=== PATIENT | male | born 1955 | race Caucasian/White ===

== ENCOUNTER 2022-08-23 01:40 | Emergency (ER) | payer OTHER, MEDICARE ==
[2022-08-23 01:48] VITALS: BP 156/95; PULSE 77; RESP 22; TEMP 97.6
[2022-08-23] MEDS ORDERED: MORPHINE SULFATE 4 MG/ML SYRINGE IM STA (02:59)
--- NOTE | 2022-08-23 03:36 | ED ---
Trauma HPI - General Chief Complaint: Extremity Injury, Lower Stated Complaint: Fall, [facility] Time Seen by Provider: 08/23/22 02:21 Source: patient, RN notes reviewed Mode of arrival: ambulatory Limitations: no limitations - History of Present Illness Initial Comments: This is a pleasant 66-year-old male who fell at work. Patient states she tripped over a piece of metal on a screen and fell onto his knees, left shoulder, and face. Patient denies losing consciousness but is complaining of severe pain to his left orbital area and his neck. Patient states the pain in the bilateral knee areas rather mild. Patient denies any change in vision. No nausea or vomiting. Patient not on blood thinners. No hearing disturbance. No slurred speech. No oral or dental injury. Patient had no other preceding symptomology. This was a mechanical fall. PATIENT states he does have a headache. no fever or chills, no changes in vision or hearing, no sore throat or difficulty with speech, no chest pain or shortness of breath, no abdominal pain, no nausea or vomiting, no changes in urination or bowel movements, no numbness or tingling,no skin rashes or lesions. Past medical, surgical, social, and family history reviewed. Complaint: fall - Related Data Home Medications Medication Instructions Recorded Confirmed Albuterol Sulfate [Albuterol 2 puff PO RT-Q6H PRN 01/11/22 01/11/22 Sulfate Hfa] Aspirin [Adult Low Dose Aspirin EC] 81 mg PO DAILY 01/11/22 01/11/22 Tiotropium 2.5 Mcg/Puff [Spiriva 2 puff INHALATION RT-DAILY 01/11/22 01/11/22 Respimat 2.5 Mcg] Previous Rx's Medication Instructions Recorded Atorvastatin [Lipitor] 20 mg PO HS 30 Days #30 tab 01/13/22 Clopidogrel [Plavix] 75 mg PO DAILY 30 Days #30 tab 01/13/22 Allergies Allergy/AdvReac Type Severity Reaction Status Date / Time Iodinated Contrast Media Allergy Anaphylaxis Verified 08/23/22 01:48 Review of Systems ROS Statement: Those systems with pertinent positive or pertinent negative responses have been documented in the HPI. ROS Other: All systems not noted in ROS Statement are negative. Past Medical History Past Medical History: CVA/TIA Last Myocardial Infarction Date:: 2006 History of Any Multi-Drug Resistant Organisms: None Reported Past Surgical History: Cholecystectomy, Heart Catheterization, Orthopedic Surgery Additional Past Surgical History / Comment(s): with cardiac stent; discectomy; ankle sx; right eye cataract surgery Past Anesthesia/Blood Transfusion Reactions: No Reported Reaction Past Psychological History: No Psychological Hx Reported Smoking Status: Former smoker Past Alcohol Use History: None Reported Past Drug Use History: None Reported - Past Family History Father Family Medical History: Cancer Additional Family Medical History / Comment(s): liver cancer Mother Additional Family Medical History / Comment(s): SLE; General Exam - General Exam Comments Initial Comments: Cranial nerves II through XII appear to be intact. Patient is alert and oriented 4. the patient has chronic amblyopia affecting the left eye. No evidence of entrapment. Extraocular movements are intact. Patient has obvious bruising and injury to his left forehead and left periorbital area. Limitations: no limitations General appearance: alert, in no apparent distress, in distress Head exam: Present: other (Patient has bruising and tenderness to the left periorbital area. Left zygoma. The lesser extent the bridge of his nose. Patient able to open and close his jaw. There is no mandibular tenderness. Mild abrasion to the forehead. No step-off. Major of the head is normocephalic/atraumatic.) Eye exam: Present: normal appearance, PERRL, EOMI, other (Chronic left amblyopia per patient report). Absent: scleral icterus, conjunctival injection, periorbital swelling ENT exam: Present: normal exam, normal oropharynx, mucous membranes moist, TM's normal bilaterally, normal external ear exam, other (Mild tenderness over the bridge of the nose. No evidence of septal hematoma.). Absent: mucous membranes dry Neck exam: Present: normal inspection, tenderness (Patient does have tenderness to the posterior neck to include the midline. Cervical collar applied. Range of motion testing deferred initially). Absent: meningismus, lymphadenopathy Respiratory exam: Present: normal lung sounds bilaterally. Absent: respiratory distress, wheezes, rales, rhonchi, stridor, chest wall tenderness, accessory muscle use, decreased breath sounds, prolonged expiratory Cardiovascular Exam: Present: regular rate, normal rhythm, normal heart sounds. Absent: systolic murmur, diastolic murmur, rubs, gallop, clicks GI/Abdominal exam: Present: soft, normal bowel sounds. Absent: distended, tenderness, guarding, rebound, rigid Extremities exam: Present: normal inspection, full ROM, tenderness (Mild tenderness bilateral anterior knees), normal capillary refill. Absent: pedal edema, joint swelling, calf tenderness Back exam: Present: normal inspection, full ROM. Absent: tenderness, paraspinal tenderness, vertebral tenderness Neurological exam: Present: alert, oriented X3, CN II-XII intact, normal gait (Gait essentially normal) Psychiatric exam: Present: normal affect, normal mood Skin exam: Present: warm, dry, intact, normal color. Absent: rash Course Vital Signs 08/23/22 01:40 Temperature 97.6 F Pulse Rate 77 Respiratory 22 Rate Blood Pressure 156/95 O2 Sat by Pulse 96 Oximetry Medical Decision Making - Medical Decision Making Patient's imaging showed no evidence of facial fracture, no evidence of intracranial injury. No evidence of cervical injury. Cervical spine was cleared. Patient was neurologically intact. Patient is rechecked at discharge and was improved. Plain film x-rays of bilateral knees and left shoulder read by me showing degenerative changes but no evidence of acute fracture or dislocation. Patient will need to follow up with the [facility]. Patient was told to return to the ER for any signs or symptoms worsen. Told to return immediately if any other problems arise. All questions answered. Treatment plan discussed. Patient in agreement Every effort has been made to ensure accuracy of this dictation. However, due to the limitations of electronic medical records and dictation devices, errors in charting still occur. Supervising physician is Dr. Bhat - Radiology Data Radiology results: report reviewed, image reviewed Disposition Clinical Impression: Facial contusion, Closed head injury, Contusion, knee, Contracture, left shoulder Disposition: HOME SELF-CARE Condition: Good Instructions (If sedation given, give patient instructions): Knee Pain (ED), Facial Contusion (ED), Head Injury (ED) Additional Instructions: Follow-up with your regular physician as directed. Return to the ER immediately if any symptoms worsen, new symptoms arise, or any other problems develop. Apply ice to the affected areas 20 minutes on and off for times daily. Follow- up with [facility] as discussed. Call your human resources manager manufacturing to have the appointment scheduled. Off work until follow-up. Return to the ER immediately if any symptoms worsen, new symptoms arise, or any other problems develop. Is patient prescribed a controlled substance at d/c from ED?: No Referrals: Nonstaff,Physician [Primary Care Provider] - 1-2 days Time of Disposition: 04:21
--- NOTE | 2022-08-23 03:41 | CT ---
EXAMINATION TYPE: CT brain cspine wo con DATE OF EXAM: 08/23/2022 COMPARISON: CT brain 01/11/2022 HISTORY: Fall CT DLP: 1229.6 mGycm Automated exposure control for dose reduction was used. Images of the brain and cervical spine obtained with no contrast. Ventricles and sulci appear normal. There is no mass effect or midline shift. No sign of intracranial hemorrhage. The calvarium is intact. There is normal aeration of the mastoid sinuses. No evidence of cerebral edema. The cervical vertebra have normal alignment. There is C6-7 anterior fusion surgery. Posterior element s are intact. There is mild cervical facet arthropathy. No subluxation. There is minor spurring of th e endplates. IMPRESSION: Minor degenerative changes in the cervical spine. No fracture. Negative CT scan of the brain. Brain is not changed compared to old exam. There is clearing of the le ft side frontal sinusitis compared to the old exam.
--- NOTE | 2022-08-23 03:46 | CT ---
EXAMINATION TYPE: CT facial bones wo con DATE OF EXAM: 08/23/2022 COMPARISON: None HISTORY: Fall CT DLP: 1229.6 mGycm Automated exposure control for dose reduction was used. CT scan of the facial bones. History fall. Pain. Comparison none. FINDINGS: Images obtained from the bottom of the mandible to the top of the frontal sinuses with no contrast. There is significant left-sided preseptal periorbital swelling. This is consistent with hematoma and measures up to 1.5 cm in thickness. The nasal bone is intact. There is also hematoma anterior to the left zygoma. This measures 2 cm. No evidence of orbital fracture. No evidence of orbital blowout frac ture. No retro-orbital mass. The zygomatic arches appear normal. The maxilla is intact. The mandibula r ring is intact. Temporomandibular joints are intact. There is normal aeration of the mastoid sinuse s. There is some mucosal thickening in the ethmoid air cells. IMPRESSION: Left-sided periorbital hematoma and zygomatic hematoma. No evidence of blowout fracture. No fracture seen. Ethmoid sinus mucosal thickening likely related to sinusitis. No nasal bone fracture.
--- NOTE | 2022-08-23 04:17 | XR ---
EXAMINATION TYPE: XR shoulder complete LT DATE OF EXAM: 08/23/2022 COMPARISON: NONE HISTORY: Pain TECHNIQUE: 3 views FINDINGS: I see no fracture nor dislocation. Joint spaces are normal. AC joint is intact. IMPRESSION: Negative left shoulder exam. Minor spurring at the AC joint
--- NOTE | 2022-08-23 04:18 | XR ---
EXAMINATION TYPE: XR knee complete bilateral DATE OF EXAM: 08/23/2022 COMPARISON: NONE HISTORY: Pain TECHNIQUE: 3 views each knee FINDINGS: There is no evidence of fracture nor dislocation. Joint spaces are normal. No sign of knee joint effusion. No focal bone destruction. The patella appear intact. IMPRESSION: Negative bilateral knee exam. No fracture seen.
[2022-08-23] MEDS ORDERED: ACET/COD 300 MG/30 MG STARTER PACK 6 TAB BTL PO STA (04:26)
== END 2022-08-23 05:03 | disposition home or self-care (01) ==
LOC: EC 01:40
DX: S00.83XA Contusion of other part of head, initial encounter (principal); S80.02XA Contusion of left knee, initial encounter; S80.01XA Contusion of right knee, initial encounter; M24.512 Contracture, left shoulder; I25.2 Old myocardial infarction; Z86.73 Personal history of transient ischemic attack (TIA), and cerebral infarction without residual deficits; Z87.891 Personal history of nicotine dependence; Z91.041 Radiographic dye allergy status; Z79.82 Long term (current) use of aspirin; W18.09XA Striking against other object with subsequent fall, initial encounter
CPT/HCPCS: 73562; 73030; 72125; 70486; 70450; 99284; 96372; J2270

== ENCOUNTER 2023-07-09 08:08 | Emergency (ER) | payer OTHER, MEDICARE ==
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
[2023-07-09 08:24] LABS: Glucose,Whole Blood 111 mg/dL (70-110)
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
[2023-07-09 08:40] VITALS: RESP 18
[2023-07-09 08:46] LABS: Basophils % (A) 1 %; Eosinophils # (A) 0.2 k/uL (0-0.7); Eosinophils % (A) 2 %; HCT 50.6 % (39.0-53.0); HGB 16.8 gm/dL (13.0-17.5); Lymphocytes # (A) 1.3 k/uL (1.0-4.8); Lymphocytes % (A) 14 %; MCH 28.6 pg (25.0-35.0); MCHC 33.2 g/dL (31.0-37.0); MCV 86.2 fL (80.0-100.0); Mean Platelet Volume 8.6; Monocytes # (A) 0.4 k/uL (0-1.0); Monocytes % (A) 5 %; Neutrophils # (A) 6.7 k/uL (1.3-7.7); Neutrophils % (A) 77 %; Platelet Count 168 k/uL (150-450); RBC 5.87 m/uL (4.30-5.90); RDW 14.3 % (11.5-15.5); WBC 8.6 k/uL (3.8-10.6)
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
[2023-07-09 08:50] LABS: INR 0.9 (<1.2); Partial Thromboplastin Time 24.1 sec (22.0-30.0); Prothrombin Time 9.9 sec (9.0-12.0)
[2023-07-09 08:54] LABS: ALT 23 U/L (4-49); AST 37 U/L (17-59); African American GFR (CKD) >90 (>60 ml/min/1.73 sqM); Albumin 4.2 g/dL (3.5-5.0); Alcohol <10 mg/dL; Alkaline Phosphatase 43 U/L (38-126); Anion Gap 8 mmol/L; Blood Urea Nitrogen 15 mg/dL (9-20); Calcium 8.5 mg/dL (8.4-10.2); Carbon Dioxide 26 mmol/L (22-30); Chloride 106 mmol/L (98-107); Glucose 119 mg/dL (74-99); Non-African American GFR(CKD) 80 (>60 ml/min/1.73 sqM); Sodium 140 mmol/L (137-145); Total Bilirubin 0.7 mg/dL (0.2-1.3); Total Protein 7.2 g/dL (6.3-8.2)
[2023-07-09 08:59] LABS: Potassium 4.8 mmol/L (3.5-5.1)
--- NOTE | 2023-07-09 09:37 | XR ---
EXAMINATION TYPE: XR elbow complete LT DATE OF EXAM: 07/09/2023 CLINICAL HISTORY: pain TECHNIQUE: Frontal, lateral and oblique images of the left elbow are obtained. COMPARISON: None. FINDINGS: There is no acute fracture/dislocation evident of the elbow. No abnormal fat pad signs ar e seen. The overlying soft tissue appears unremarkable. IMPRESSION: There is no acute fracture or dislocation of the elbow. ICD 10 NO FRACTURE, INITIAL EVALUATION
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
--- NOTE | 2023-07-09 09:38 | XR ---
EXAMINATION TYPE: XR Hip Complete LT DATE OF EXAM: 07/09/2023 CLINICAL HISTORY: pain TECHNIQUE: AP and frogleg views of the left hip are obtained. COMPARISON: None. FINDINGS: There is no acute fracture/dislocation evident. The joint space appears within normal li mits. The overlying soft tissue appears unremarkable. IMPRESSION: 1. There is no acute fracture or dislocation.ICD 10 NO FRACTURE, INITIAL EVALUATION
[2023-07-09] MEDS ORDERED: LIDOCAINE 1% INJ 10MG/ML (20 ML MDV) SQ ONE (10:13)
[2023-07-09] MEDS ORDERED: BACITRACIN OINT 1 EACH PACKET TOPICAL ONE ×2 (10:13→11:20)
[2023-07-09 11:59] VITALS: BP 137/72; PULSE 71; TEMP 97
[2023-07-09 12:21] LABS: Amphetamine Screen,Urine Not Detected (NotDetected); Barbiturate Screen,Urine Not Detected (NotDetected); Benzodiazepines Screen,Urine Not Detected (NotDetected); Cocaine Screen,Urine Not Detected (NotDetected); Methadone Screen, Urine Not Detected (NotDetected); Opiate Screen,Urine Detected (NotDetected); Oxycodone Screen, Urine Not Detected (NotDetected); Phencyclidine Screen,Urine Not Detected (NotDetected); Tricyclic Antidepressant,Urine Not Detected (NotDetected); Urn Cannabinoid Scrn Not Detected (NotDetected)
== END 2023-07-09 11:55 | disposition home or self-care (01) ==
LOC: EC 08:08
DX: S51.012A Laceration without foreign body of left elbow, initial encounter (principal); S50.812A Abrasion of left forearm, initial encounter; Z87.891 Personal history of nicotine dependence; Z79.82 Long term (current) use of aspirin; Z91.041 Radiographic dye allergy status; V29.99XA Rider (driver) (passenger) of other motorcycle injured in unspecified traffic accident, initial encounter; Y92.410 Unspecified street and highway as the place of occurrence of the external cause
CPT/HCPCS: 36415; 93005; 86900; 86901; 80053; 84484; 85025; 85610; 85730; 86850; 80306; 80320; 72170; 73502; 73080; 73562; 71045; 72125; 70450; 99285; 96365; 12002; J0690; J2001

== ENCOUNTER → 2024-09-17 | Outpatient (CLI) | payer OTHER ==
[2024-09-17 12:34] VITALS: BP 155/91; PULSE 68; RESP 16; TEMP 97.5
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
== END ==
LOC: PNWHC3 12:14
PROVIDERS: ATTEND Specialist
DX: M54.16 Radiculopathy, lumbar region
CPT/HCPCS: 99211

== ENCOUNTER → 2024-09-22 | Outpatient (CLI) | payer OTHER ==
--- NOTE | 2024-09-22 20:06 | CT ---
EXAMINATION TYPE: CT lumbar spine wo con CT DLP: 1492.4 mGycm, Automated exposure control for dose reduction was used. DATE OF EXAM: 09/22/2024 6:37 AM COMPARISON: Lumbar spine radiograph 07/23/2024. CLINICAL INDICATION:Male, 68 years old with history of INTERVERTEBRAL DISC DISORDERS W RADICULOPATHY, LUMBAR REGION; PHH, Low back pain, no known injury TECHNIQUE: Multiple axial images were obtained from the midportion of T11 through the sacroiliac jamia nts. Soft tissue and bone windows in coronal and sagittal planes were obtained and reviewed. Contrast used: none. Oral contrast used: none. FINDINGS: Alignment: There are 5 lumbar type vertebral bodies within normal alignment. Bone: No evidence of fracture is identified. Discs: T12-L1: No spinal canal or neural foraminal stenosis is identified. L1-L2: No spinal canal or neural foraminal stenosis is identified. L2-L3: No spinal canal or neural foraminal stenosis is identified. L3-L4: No spinal canal or neural foraminal stenosis is identified. L4-L5: Broad-based disc bulge with minimal effacement of the anterior thecal sac. Bilateral facet art hropathy with mild bilateral neural foraminal narrowing. L5-S1: No spinal canal or neural foraminal stenosis is identified. Other: Medial lower pole of the left kidney 1.4 cm cyst. Atherosclerotic calcification of the aorta i s branches. No abdominal aortic aneurysm. IMPRESSION: 1. No evidence for spinal fracture. 2. Mild degenerative disc disease and facet arthropathy at L4-L5 with a minimal spinal canal narrowin g and mild bilateral neural foraminal narrowing. [facility], , 09/22/2024 8:04 PM
== END | disposition home or self-care (01) ==
LOC: RADCTMAIN 05:48
PROVIDERS: ATTEND Specialist
CPT/HCPCS: 72131

== ENCOUNTER 2024-10-08 09:58 | Inpatient (IN) | payer OTHER ==
--- NOTE | 2024-10-08 10:16 | ED ---
Chest Pain HPI - General Source: patient, RN notes reviewed <Sharona Guzmán - Last Filed: 10/08/24 10:15> - General Source: patient, RN notes reviewed Mode of arrival: ambulatory Limitations: no limitations <Alphonso Willett - Last Filed: 10/08/24 13:21> - General Stated Complaint: chest pain Time Seen by Provider: 10/08/24 10:15 - History of Present Illness Initial Comments: Quick [id number] male presenting to the emergency department chief complaint of consistent chest pressure that is mid chest that started approximately 30 minutes prior to arrival. Endorses shortness of breath with pain. Patient has a lung nodule is being monitored by his primary care provider . History of previous stent placement (Sharona Guzmán) 68-year-old male presents emergency department chief complaint of chest pain. Patient states it is mid chest pain, pressure feeling that started just prior to arrival. States pain does radiate to his chest, back region. Patient states he has some shortness of breath he states that a prior stents placement in 2006 wh en he had an NSTEMI. Patient states he also had 2 prior strokes he is on Plavix, aspirin but did not take his aspirin today. Patient denies any cough colic symptoms no leg pain leg swelling no history of DVT or PE. (Alphonso Willett) - Related Data Home Medications Medication Instructions Recorded Confirmed Albuterol Sulfate [Albuterol 2 puff PO RT-Q6H PRN 01/11/22 09/17/24 Sulfate Hfa] Aspirin [Adult Low Dose Aspirin EC] 81 mg PO DAILY 01/11/22 09/17/24 Tiotropium 2.5 Mcg/Puff [Spiriva 2 puff INHALATION RT-DAILY 01/11/22 09/17/24 Respimat 2.5 Mcg] Previous Rx's Medication Instructions Recorded Atorvastatin [Lipitor] 20 mg PO HS 30 Days #30 tab 01/13/22 Clopidogrel [Plavix] 75 mg PO DAILY 30 Days #30 tab 01/13/22 Acetaminophen Tab [Tylenol Tab] 500 mg PO Q6H PRN #24 tablet 08/23/22 Naproxen [Naprosyn] 375 mg PO Q12HR PRN #20 tablet 08/23/22 Allergies Allergy/AdvReac Type Severity Reaction Status Date / Time Iodinated Contrast Media Allergy Anaphylaxis Verified 10/08/24 10:18 Review of Systems ROS Other: All systems not noted in ROS Statement are negative. <Sharona Guzmán - Last Filed: 10/08/24 10:15> ROS Other: All systems not noted in ROS Statement are negative. <Alphonso Willett - Last Filed: 10/08/24 13:21> ROS Statement: Those systems with pertinent positive or pertinent negative responses have been documented in the HPI. EKG Findings - EKG Comments: EKG Findings:: EKG performed at 10: 32 sinus rhythm with a rate of 74 ID 156 QRS 109 QT/QTc 309/426 Q wave in lead III noted. - EKG Results: EKG: interpreted by ERMD <Alphonso Willett - Last Filed: 10/08/24 13:21> Past Medical History Past Medical History: CVA/TIA Last Myocardial Infarction Date:: 2006 History of Any Multi-Drug Resistant Organisms: None Reported Past Surgical History: Cholecystectomy, Heart Catheterization, Orthopedic Surgery Additional Past Surgical History / Comment(s): with cardiac stent; discectomy; ankle sx; right eye cataract surgery Past Anesthesia/Blood Transfusion Reactions: No Reported Reaction Smoking Status: Former smoker - Past Family History Father Family Medical History: Cancer Additional Family Medical History / Comment(s): liver cancer Mother Additional Family Medical History / Comment(s): SLE; <Sharona Guzmán - Last Filed: 10/08/24 10:15> General Exam <Sharona Guzmán - Last Filed: 10/08/24 10:15> General appearance: alert, in no apparent distress Head exam: Present: atraumatic, normocephalic, normal inspection Neck exam: Present: normal inspection. Absent: tenderness, meningismus, lymphadenopathy Respiratory exam: Present: normal lung sounds bilaterally. Absent: respiratory distress, wheezes, rales, rhonchi, stridor Cardiovascular Exam: Present: regular rate, normal rhythm, normal heart sounds. Absent: systolic murmur, diastolic murmur, rubs, gallop, clicks GI/Abdominal exam: Present: soft, normal bowel sounds. Absent: distended, tenderness, guarding, rebound, rigid Extremities exam: Absent: pedal edema <Alphonso Willtet - Last Filed: 10/08/24 13:21> - General Exam Comments Initial Comments: Visual Physical Exam Vital signs reviewed General: Well-appearing, nontoxic, no acute distress. Head: Normocephalic, atraumatic Eyes: PERRLA, EOMI ENT: Airway patent Chest: Nonlabored breathing Skin: No visual rash, normal skin tone Neuro: Alert and oriented 3 Musculoskeletal: No gross abnormalities (Sharona Guzmán) Course Vital Signs 10/08/24 10:16 Temperature 97.5 F L Pulse Rate 77 Respiratory 20 Rate Blood Pressure 136/82 O2 Sat by Pulse 95 Oximetry Chest Pain MDM <Sharona Guzmán - Last Filed: 10/08/24 10:15> <Alphonso Willett - Last Filed: 10/08/24 13:21> - MDM I completed the quick note portion of this chart signed Sharona Guzmán PA-C (Sharona Guzmán) Was pt. sent in by a medical professional or institution (CHAPARRO Gregorio, PRINTING ESTIMATOR, urgent care, hospital, or jail...) When possible be specific @ -No Did you speak to anyone other than the patient for history (EMS, parent, family, police, friend...)? What history was obtained from this source @ -No Did you review nursing and triage notes (agree or disagree)? Why? @ -I reviewed and agree with nursing and triage notes Were old charts reviewed (outside hosp., previous admission, EMS record, old EKG, old radiological studies, urgent care reports/EKG's, jail records)? Report findings @ -No old charts were reviewed Differential Diagnosis (chest pain, altered mental status, abdominal pain women, abdominal pain men, vaginal bleeding, weakness, fever, dyspnea, syncope, headache, dizziness, GI bleed, back pain, seizure, CVA, palpatations, mental health, musculoskeletal)? @ -Differential Chest Pain: Stable Angina, Unstable Angina, STEMI, NSTEMI Aortic Dissection, Pneumothorax, Musculoskeletal, Esophageal Spasm GERD, Cholecystitis, Pancreatitis, Zoster, this is not meant to be an all-inclusive list. EKG interpreted by me (3pts min.). @ -As above X-rays interpreted by me (1pt min.). @ -None done CT interpreted by me (1pt min.). @ -None done U/S interpreted by me (1pt. min.). @ -None done What testing was considered but not performed or refused? (CT, X-rays, U/S, labs)? Why? @ -None What meds were considered but not given or refused? Why? @ -None Did you discuss the management of the patient with other professionals (professionals i.e. , PA, PRINTING ESTIMATOR, lab, RT, psych nurse, social work associate, sugar sampler, teacher, vice squad police officer, manager rn case)? Give summary @ -Juan Carey with [facility] for admission Was smoking cessation discussed for >3mins.? @ -No Was critical care preformed (if so, how long)? @ -No Were there social determinants of health that impacted care today? How? (Homelessness, low income, unemployed, alcoholism, drug addiction, transportation, low edu. Level, literacy, decrease access to med. care, intermediate, rehab)? @ -No Was there de-escalation of care discussed even if they declined (Discuss DNR or withdrawal of care, Hospice)? DNR status @ -No What co-morbidities impacted this encounter? (DM, HTN, Smoking, COPD, CAD, Cancer, CVA, ARF, Chemo, Hep., AIDS, mental health diagnosis, sleep apnea, morbid obesity)? @ -[CAD Was patient admitted / discharged? Hospital course, mention meds given and route, prescriptions, significant lab abnormalities, going to OR and other pertinent info. @ -Admitted patient presented for chest pain substernal chest pain. Patient continues to have pain with no EKG changes. Nitropaste was applied. Patient will be admitted for cardiac rule out. Undiagnosed new problem with uncertain prognosis? @ -No Drug Therapy requiring intensive monitoring for toxicity (Heparin, Nitro, Insulin, Cardizem)? @ -No Were any procedures done? @ -No Diagnosis/symptom? @ -Chest pain Acute, or Chronic, or Acute on Chronic? @ -Acute Uncomplicated (without systemic symptoms) or Complicated (systemic symptoms)? @ -complicated Side effects of treatment? @ -No Exacerbation, Progression, or Severe Exacerbation? @ -No Poses a threat to life or bodily function? How? (Chest pain, [place], [place], pneumonia, PE, COPD, DKA, ARF, appy, cholecystitis, CVA, Diverticulitis, Homicidal, Suicidal, threat to staff... and all critical care pts) @ yes possible ACS causing cardiac arrest (Alphonso Willett) Disposition <Sharona Guzmán - Last Filed: 10/08/24 10:15> Time of Disposition: 13:10 <Alphonso Willett - Last Filed: 10/08/24 13:21> Clinical Impression: Chest pain Disposition: ADMITTED IP TO THIS HOSP Referrals: Nonstaff,Physician [Primary Care Provider] - 1-2 days
[2024-10-08 10:55] LABS: Basophils % (A) 0 %; Eosinophils # (A) 0.2 k/uL (0-0.7); Eosinophils % (A) 3 %; HCT 51.1 % (39.0-53.0); HGB 16.8 gm/dL (13.0-17.5); Lymphocytes # (A) 1.7 k/uL (1.0-4.8); Lymphocytes % (A) 23 %; MCHC 32.8 g/dL (31.0-37.0); MCV 85.2 fL (80.0-100.0); Mean Platelet Volume 8.2; Monocytes # (A) 0.6 k/uL (0-1.0); Monocytes % (A) 8 %; Neutrophils # (A) 4.6 k/uL (1.3-7.7); Neutrophils % (A) 64 %; Platelet Count 178 k/uL (150-450); RDW 14.8 % (11.5-15.5); WBC 7.3 k/uL (3.8-10.6)
[2024-10-08 11:07] LABS: ALT 21 U/L (4-49); AST 28 U/L (17-59); African American GFR (CKD) 85 (>60 ml/min/1.73 sqM); Albumin 4.6 g/dL (3.5-5.0); Alkaline Phosphatase 64 U/L (38-126); Anion Gap 6 mmol/L; Blood Urea Nitrogen 17 mg/dL (9-20); Calcium 9.4 mg/dL (8.4-10.2); Carbon Dioxide 26 mmol/L (22-30); Chloride 106 mmol/L (98-107); Glucose 87 mg/dL (74-99); Lipase 78 U/L (23-300); Non-African American GFR(CKD) 73 (>60 ml/min/1.73 sqM); Sodium 138 mmol/L (137-145); Total Bilirubin 0.9 mg/dL (0.2-1.3); Total Protein 7.2 g/dL (6.3-8.2)
[2024-10-08 11:11] LABS: INR 0.9 (<1.2); Partial Thromboplastin Time 26.4 sec (22.0-30.0); Prothrombin Time 10.4 sec (10.0-12.5)
[2024-10-08 11:16] LABS: NT-Pro-B-Type Natriuretic Pept 44 pg/mL
[2024-10-08] MEDS: ASPIRIN 81 MG PO STA (11:58)
--- NOTE | 2024-10-08 12:12 | XR ---
EXAMINATION TYPE: XR chest 2V DATE OF EXAM: 10/08/2024 11:50 AM COMPARISON: 07/09/2023 CLINICAL INDICATION: Male, 68 years old with history of Chest Pain, TECHNIQUE: XR chest 2V view(s) obtained. FINDINGS: The heart size is normal. The pulmonary vasculature is normal. The lungs are clear. IMPRESSION: 1. No acute pulmonary process. [facility], , 10/08/2024 12:10 PM
[2024-10-08] MEDS: NITROGLYCERIN OINT 1 INCH/GM PACKET TOPICAL STA (13:47)
[2024-10-08] MEDS: MORPHINE SULFATE 4 MG/ML SYRINGE IVP STA ×2 (13:47→15:38)
[2024-10-08] MEDS ORDERED: ALBUTEROL NEBULIZED 2.5 MG/3 ML INHALATION PRN (13:49)
--- NOTE | 2024-10-08 15:06 | P.HPIM ---
History of Present Illness H&P Date: 10/08/24 History of Presenting Illness: Patient is a pleasant 68-year-old male with a past medical history of CAD status post stenting, hypertension, hyperlipidemia, COPD not home oxygen dependent, lung nodule, and 2 previous CVAs. He presented to the emergency department with a chief complaint of chest pain. Patient reports pain started this morning while at rest and describes pain as a persistent pressure to midsternal chest radiating into his back accompanied by shortness of breath. Patient states this chest pressure is persistent "heaviness". He denies having any dizziness, lightheadedness, diaphoresis, changes in vision or hearing, palpitations, cough or congestion, nausea, vomiting, or experiencing any numbness/tingling/weakness/swelling in his extremities. Patient reports he follows with health care / medical job titles at [facility] but has not seen in over a year. Patient reports this pressure is intense and he seems worse than his chest pain/pressure he experienced from his previous [place] in 2006. Upon arrival to our facility, patient underwent evaluation in the emergency department. Vital signs upon arrival show blood pressure 136/82, heart rate 77, respiratory rate 20, temp 97.5 F, and SpO2 of 95% on room air. EKG completed showing normal sinus r hythm at 74 bpm with T wave inversion in inferior lead III otherwise no significant T wave or ST abnormalities upon personal review and interpretation. Chest x-ray completed negative for acute cardiopulmonary process. Labs completed and reviewed. CBC unremarkable. Coagulation profile normal findings. BMP unremarkable. Blood glucose 87. Magnesium 2.0. Calcium 9.4. Liver profile normal findings. Troponin negative at less than 0.012 and proBNP of 44. Patient given morphine 4 mg IVP and Nitropaste placed. Patient admitted under our services with consultation to cardiology. Upon reevaluation patient continued to report persistent pressure, however states it was reduced if not cut in half after receiving the Nitropaste. Review of systems: Pertinent positives and negatives as discussed in HPI, a complete review of systems was performed and all other systems are negative. Physical exam: Vital signs reviewed and stable. General: Nontoxic, no distress and appears stated age. Derm: Skin warm and dry, normal coloration for ethnicity. Head: Atraumatic, normocephalic and symmetric. Eyes: EOM's intact, no lid lag, and anicteric sclera Mouth: no lip lesions, mucus membranes moist Cardiovascular: regular rate and rhythm with normal S1S2, no murmur, positive posterior tibial pulses bilaterally, and cap refill < 2 seconds. Lungs: Respirations even, regular, and unlabored on room air. Lungs CTA bilaterally, no rhonchi, no rales, no wheezing, and no accessory muscle usage. Abdominal: soft, nontender to palpation, no guarding, no appreciable organomegaly Ext: ROM intact. No gross muscle atrophy, no edema, no contractures Neuro: Speech clear, face symmetrical and CN II-XII grossly intact with no noted focal neuro deficits Psych: Alert and oriented to person, place, time, and situation. Appropriate and pleasant affect. Assessment and Plan of Care: Unstable angina Chest pain, rule out acute coronary event History of CAD status post stenting Hypertension Hyperlipidemia -Cardiology consulted, appreciate recommendations -Upon reevaluation patient continued to report persistent midsternal chest pressure, however states it was reduced if not cut in half after receiving the Nitropaste. Order placed for repeat EKG and second Trope being drawn at this time. Patient to be started on heparin infusion for concerns of unstable angina. -Order placed for low intensity heparin infusion with close monitoring of PTT every 6 hours for goal therapeutic range of 45 to 79 seconds. -Telemetry monitoring -Trend troponins -Cardiac diet, NPO at midnight -Continue cardiac medication regimen with aspirin 81 mg daily, atorvastatin 80 mg daily, Zetia 10 mg daily, lisinopril 5 mg daily, metoprolol succinate 50 mg daily and as needed sublingual nitro 0.4 mg sublingual every 5 minutes as needed for chest pain. -Lipid profile with a.m. labs. -Echocardiogram to be completed COPD History of lung nodule -Continue Ventolin inhaler every 6 hours as needed for wheezing/shortness of breath and Spiriva 2 puffs daily. -Patient to be provided with supplemental oxygen as needed to maintain SpO2 equal to or greater than 92%. Currently on room air. History of CVAs -Continue daily aspirin 81 mg daily and atorvastatin 80 mg daily. The patient is admitted with an anticipated less than 2 midnight stay for evaluation of chest pain/unstable angina CODE STATUS: Full code DVT prophylaxis: Patient placed on low intensity heparin infusion Anticipated discharge date: Pending clinical course Anticipated discharge place: Home Patient was seen independently by Nurse Practitioner. This document was prepared using [employer] dictation software. Please allow for errors in pulpwood contractor while rare they do occur. Juan Carey NP rendered care for this patient independently, reviewed the findings and plan as documented in the note above and agree with plan. I did not physically speak with or examine the patient on this date. Past Medical History Past Medical History: CVA/TIA Last Myocardial Infarction Date:: 2006 History of Any Multi-Drug Resistant Organisms: None Reported Past Surgical History: Cholecystectomy, Heart Catheterization, Orthopedic Surgery Additional Past Surgical History / Comment(s): with cardiac stent; discectomy; ankle sx; right eye cataract surgery Past Anesthesia/Blood Transfusion Reactions: No Reported Reaction Smoking Status: Former smoker - Past Family History Father Family Medical History: Cancer Additional Family Medical History / Comment(s): liver cancer Mother Additional Family Medical History / Comment(s): SLE; Medications and Allergies Home Medications Medication Instructions Recorded Confirmed Type Albuterol Sulfate [Albuterol 2 puff PO RT-Q6H PRN 10/08/24 10/08/24 History Sulfate Hfa] Aspirin EC [Ecotrin Low Dose] 81 mg PO DAILY 10/08/24 10/08/24 History Atorvastatin [Lipitor] 80 mg PO DAILY 10/08/24 10/08/24 History Ezetimibe [Zetia] 10 mg PO DAILY 10/08/24 10/08/24 History Magnesium Oxide [Mag-Ox] 400 mg PO DAILY 10/08/24 10/08/24 History Metoprolol Succinate (ER) [Toprol 50 mg PO DAILY 10/08/24 10/08/24 History Xl] Omeprazole [PriLOSEC] 20 mg PO AC-BID 10/08/24 10/08/24 History Tiotropium 2.5 Mcg/Puff [Spiriva 2 puff INHALATION RT-DAILY 10/08/24 10/08/24 History Respimat 2.5 Mcg] lisinopriL [Zestril] 5 mg PO DAILY 10/08/24 10/08/24 History methocarbamoL [Robaxin-750] 750 mg PO TID PRN 10/08/24 10/08/24 History Allergies Allergy/AdvReac Type Severity Reaction Status Date / Time gabapentin Allergy Unknown Verified 10/08/24 14:57 Iodinated Contrast Media Allergy Anaphylaxis Verified 10/08/24 14:57 Physical Exam Vitals: Vital Signs Temp Pulse Pulse Resp BP Pulse Ox 10/08/24 13:41 77 10/08/24 10:16 97.5 F L 77 20 136/82 95 Intake and Output 10/07/24 10/08/24 10/08/24 22:59 06:59 14:59 Other: Weight 104.326 kg Results CBC & Chem 7: 10/08/24 10:32 10/08/24 10:32 Labs: Abnormal Lab Results - Last 24 Hours (Table) 10/08/24 Range/Units 10:32 RBC 6.00 H (4.30-5.90) m/uL
[2024-10-08] MEDS: HEPARIN SOD,PORK IN 0.45% NACL 25,000 UNIT in 0.45% NACL 1 250ML.BAG IV SCH (15:43)
[2024-10-08] MEDS: HEPARIN SODIUM 1,000 UN/ML (10ML VL) IV ONE (15:43)
[2024-10-08] MEDS: ATORVASTATIN 80 MG TAB PO SCH (17:21)
[2024-10-08] MEDS: PANTOPRAZOLE 40 MG TABLET PO SCH (17:21)
[2024-10-08] MEDS: EZETIMIBE 10 MG TAB PO SCH (17:22)
[2024-10-08] MEDS ORDERED: ATORVASTATIN 40 MG TAB PO SCH (21:00)
[2024-10-08] MEDS ORDERED: ATORVASTATIN 20 MG TAB PO SCH (21:00)
[2024-10-08] MEDS: HEPARIN SODIUM 1,000 UN/ML (10ML VL) IV PRN (22:49)
[2024-10-09 06:10] LABS: Partial Thromboplastin Time 48.6 sec (22.0-30.0); Prothrombin Time 10.7 sec (10.0-12.5)
[2024-10-09] MEDS ORDERED: NON FORMULARY DRUG (Tiotropium 2.5 Mcg/Puff 10 PUFF Each) INHALATION SCH (08:00)
[2024-10-09] MEDS: IPRATROPIUM 0.5 MG/2.5 ML NEBU INHALATION SCH (08:25)
[2024-10-09] MEDS: METOPROLOL SUCCINATE (ER) 50 MG TAB.ER.24H PO SCH (08:34)
[2024-10-09] MEDS: lisinopriL 5 MG TAB PO SCH (08:34)
[2024-10-09] MEDS: ASPIRIN 81 MG PO SCH (08:34)
[2024-10-09] MEDS: NITROGLYCERIN SL TABS 0.4 MG TAB SUBLINGUAL PRN (08:40)
[2024-10-09] MEDS ORDERED: CLOPIDOGREL 75 MG TAB PO SCH (09:00)
[2024-10-09] MEDS ORDERED: ASPIRIN 325 MG TAB PO SCH (09:00)
[2024-10-09 09:34] LABS: Basophils # (A) 0.06 X 10*3/uL (0.00-0.10); Basophils % (A) 0.9 %; Eosinophils % (A) 5.9 %; HCT 48.7 % (39.6-50.0); HGB 15.6 g/dL (13.0-17.0); Lymphocytes # (A) 1.44 X 10*3/uL (0.90-5.00); Lymphocytes % (A) 21.3 %; MCH 27.8 pg (27.0-32.0); MCV 86.8 FL (80.0-97.0); Mean Platelet Volume 11.9 FL (9.5-12.2); Monocytes # (A) 0.66 X 10*3/uL (0.20-1.00); Monocytes % (A) 9.8 %; NRBC Per 100 WBC 0 X 10*3/uL (0.00-0.01); Neutrophils # (A) 4.17 X 10*3/uL (1.80-7.70); Neutrophils % (A) 61.8 %; Platelet Count 189 X 10*3/uL (140-440); RBC 5.61 X 10*6/uL (4.40-5.60); RDW 15.1 % (11.5-14.5); WBC 6.75 X 10*3/uL (4.50-10.00)
[2024-10-09] MEDS ORDERED: ASPIRIN 81 MG PO ONE (10:00)
[2024-10-09] MEDS: MORPHINE SULFATE 4 MG/ML SYRINGE IV PRN (10:05)
[2024-10-09] MEDS: SODIUM CHLORIDE 0.9% 1,000 ML IV SCH (10:05)
[2024-10-09] MEDS: ASPIRIN 81 MG PO ONE (10:06)
[2024-10-09 10:28] LABS: Chol/HDL Ratio 3.21 Ratio; LDL Cholesterol,Calculated 100.2 mg/dL (0.0-131.0); Magnesium 2.1 mg/dL (1.5-2.4)
[2024-10-09 10:35] LABS: ALT 18 U/L (10-49); AST 26 U/L (14-35); Albumin/Globulin Ratio 1.74 Ratio (1.60-3.17); Alkaline Phosphatase 61 U/L (41-126); BUN/Creat Ratio 15.69 Ratio (12.00-20.00); Blood Urea Nitrogen 20.4 mg/dL (9.0-27.0); Calcium 8.5 mg/dL (8.7-10.3); Carbon Dioxide 23.6 mmol/L (21.6-31.8); Chloride 103 mmol/L (96-109); Globulin 2.3 g/dL (1.6-3.3); Glucose 103 mg/dL (70-110); Potassium 4.4 mmol/L (3.5-5.5); Sodium 137 mmol/L (135-145); Total Bilirubin 0.6 mg/dL (0.3-1.2); Total Protein 6.3 g/dL (6.2-8.2)
[2024-10-09] MEDS ORDERED: ALPRAZolam 0.25 MG TAB PO PRN (10:47)
[2024-10-09] MEDS ORDERED: NITROGLYCERIN SL TABS 0.4 MG TAB SUBLINGUAL PRN (10:47)
[2024-10-09] MEDS ORDERED: ALPRAZolam 0.5 MG TAB PO PRN (10:47)
[2024-10-09] MEDS: SODIUM CHLORIDE 0.9% 1,000 ML IV ONE (10:48)
[2024-10-09] MEDS: methylPREDNISolone SOD SUCCI 125 MG/2 ML VIAL IVP ONE (10:50)
[2024-10-09] MEDS: diphenhydrAMINE 50 MG/ML 1 ML VIAL IVP ONE (10:50)
[2024-10-09] MEDS: LIDOCAINE 1% INJ 10MG/ML (20 ML MDV) SQ ONE (10:52)
[2024-10-09] MEDS: VERAPAMIL SYRINGE (5 MG/10 ML) INTRAARTER ONE (10:53)
[2024-10-09] MEDS: ATORVASTATIN 80 MG TAB PO STA (10:54)
[2024-10-09] MEDS: ASPIRIN 325 MG TAB PO STA (10:54)
[2024-10-09] MEDS: MIDAZOLAM 2 MG/2 ML VIAL IVP ONE (10:56)
[2024-10-09] MEDS: HEPARIN SODIUM,PORCINE (1 ML) 2,500 UNIT in SODIUM CHLORIDE 0.9% 250 ML IRRIGATION PRN (11:02)
[2024-10-09] MEDS: HEPARIN SODIUM,PORCINE 10,000 UNIT in SODIUM CHLORIDE 0.9% 1,000 ML IRRIGATION PRN (11:02)
[2024-10-09] MEDS: IOPAMIDOL-300 100ML BTL INJ ONE (11:17)
--- NOTE | 2024-10-09 12:12 | CA ---
Transthoracic Echo Report Name: Jose Raul Robledo Age: 68 Gender: M : 1955 Exam Date: 10/09/2024 08:39 Exam Location: [facility] Ht (in): 72 Wt (lb): 230 Ordering Physician: Alphonso Willett PAC Attending/Referring Phys: MARCIA, Brennon Interior Paneler Mariah Gorman RDCS Procedure CPT: Indications: Chest Pain Cardiac Hx: Cath, Stent Technical Quality: Fair Contrast 1: Total Dose (mL): Contrast 2: Total Dose (mL): MEASUREMENTS (Male / Female) Normal Values 2D ECHO LV Diastolic Diameter PLAX 4.6 cm 4.2 - 5.9 / 3.9 - 5.3 cm LV Systolic Diameter PLAX 2.2 cm IVS Diastolic Thickness 1.4 cm 0.6 - 1.0 / 0.6 - 0.9 cm LVPW Diastolic Thickness 1.2 cm 0.6 - 1.0 / 0.6 - 0.9 cm LV Relative Wall Thickness 0.6 RV Internal Dim ED PLAX 2.0 cm LA Systolic Diameter LX 3.7 cm 3.0 - 4.0 / 2.7 - 3.8 cm LV Diastolic Volume MOD BP 55.7 cm??? 67 - 155 / 56 - 104 cm??? LV Systolic Volume MOD BP 19.7 cm??? - 58 / 19 - 49 cm??? LV Ejection Fraction MOD BP 64.7 % >= 55 % LV Cardiac Index MOD BP 1131.0 cm???/min???m??? LV Diastolic Volume MOD 4C 55.2 cm??? LV Systolic Volume MOD 4C 17.4 cm??? LV Ejection Fraction MOD 4C 68.5 % LV Cardiac Index MOD 4C 1185.4 cm???/min???m??? LV Diastolic Length 4C 6.9 cm LV Systolic Length 4C 5.5 cm LV Diastolic Volume MOD 2C 54.3 cm??? LV Systolic Volume MOD 2C 20.3 cm??? LV Ejection Fraction MOD 2C 62.7 % LV Cardiac Index MOD 2C 1066.5 cm???/min???m??? LV Diastolic Length 2C 7.2 cm LV Systolic Length 2C 6.1 cm LA Volume 44.0 cm??? 18 - 58 / 22 - 52 cm??? LA Volume Index 18.9 cm???/m??? 16 - 28 cm???/m??? M-MODE Aortic Root Diameter MM 3.2 cm LA Systolic Diameter MM 3.9 cm LA Ao Ratio MM 1.2 AV Cusp Separation MM 2.1 cm DOPPLER MV Area PHT 2.5 cm??? Mitral E Point Velocity 54.8 cm/s Mitral A Point Velocity 63.8 cm/s Mitral E to A Ratio 0.9 MV Deceleration Time 309.3 ms TR Peak Velocity 203.4 cm/s TR Peak Gradient 16.6 mmHg Right Ventricular Systolic Press 21.6 mmHg FINDINGS Left Ventricle Left ventricular ejection fraction is estimated at 55-60 %. Mildly increased septal wall thickness. Normal left ventricular systolic function with no obvious regional wall motion abnormalities. Left ventricular cavity size normal. Right Ventricle Normal right ventricular size and function. Right ventricular systolic pressure within normal limits. Right Atrium Normal right atrial size. Left Atrium Normal left atrial size. Mitral Valve Structurally normal mitral valve. Trace to mild mitral regurgitation. No mitral stenosis. Aortic Valve Trileaflet aortic valve. No aortic stenosis. No aortic regurgitation. Tricuspid Valve Structurally normal tricuspid valve. Trace tricuspid regurgitation. No tricuspid stenosis. Pulmonic Valve Structurally normal pulmonic valve. Trace pulmonic regurgitation. No pulmonic stenosis. Pericardium No pericardial or pleural effusion. Aorta Normal size aortic root and proximal ascending aorta. CONCLUSIONS Normal LV function Previewed by: Dr. Jhonatan Mckeon MD (Electronically Signed) Final Date: 09 October 2024 12:11
--- NOTE | 2024-10-09 12:15 | CC ---
CARDIAC CATHETERIZATION REPORT INDICATION: Unstable angina. PROCEDURE NOTE: After obtaining informed consent, left heart catheterization and coronary angiogram were performed via the right femoral artery using standard Donald catheters. The patient tolerated the procedure well without any obvious immediate complications. A femoral angiogram was done and we will consider Angio-Seal if we are able to. I initially attempted right radial artery access using Seldinger technique. A 6-Belarusian sheath was placed. We passed the Glidewire all the way into the ascending aorta. However, we had difficulty manipulating the catheter into the brachial artery. Hence, I decided to proceed with the femoral catheterization. Total sedation time was 29 minutes. FINDINGS: 1. HEMODYNAMICS: Left ventricular end-diastolic pressure is 14 mm. There is no significant gradient across the aortic valve. 2. LEFT VENTRICULOGRAM: Left ventriculogram is not performed. 3. ANGIOGRAPHIC DATA: 4. Right coronary artery: Right coronary artery is a large dominant vessel that shows mild nonobstructive disease involving mid to distal RCA. Left main coronary artery is a normal-sized vessel and is free of stenosis. Divides into left anterior descending coronary artery and circumflex coronary artery. LAD was previously stented in the proximal portion. Stent is patent. Past the stent there is a 20% to 30% stenosis. 5. Circumflex coronary artery also shows mild nonobstructive disease. CONCLUSIONS: 1. Patent stent within the LAD. 2. Mild nonobstructive disease involving a large dominant right coronary artery to circ and LAD. PLAN: I reviewed angiographic data with the patient and advised him on medical therapy. We will continue workup for noncardiac causes for his chest pain. MMODL / IJN: [id number] /
--- NOTE | 2024-10-09 13:21 | P.PN ---
Subjective Progress Note Date: 10/09/24 Hospital Course: Patient is a pleasant 68-year-old male with a past medical history of CAD status post stenting, hypertension, hyperlipidemia, COPD not home oxygen dependent, lung nodule, and 2 previous CVAs. He presented to the emergency department with a chief complaint of chest pain. Patient reports pain is a persistent pressure to midsternal chest radiating into his back accompanied by shortness of breath stating a constant "heaviness". Patient reports he follows with machine stemmer at [facility] but has not seen in over a year. Patient reports this pressure is intense and he seems worse than his chest pain/pressure he experienced from his previous [place] in 2006. Upon arrival to our facility, patient underwent evaluation in the emergency department. Vital signs upon arrival show blood pressure 136/82, heart rate 77, respiratory rate 20, temp 97.5 F, and SpO2 of 95% on room air. EKG completed showing normal sinus rhythm at 74 bpm with T wave i nversion in inferior lead III otherwise no significant T wave or ST abnormalities upon personal review and interpretation. Chest x-ray completed negative for acute cardiopulmonary process. Labs completed and reviewed. CBC unremarkable. Coagulation profile normal findings. BMP unremarkable. Blood glucose 87. Magnesium 2.0. Calcium 9.4. Liver profile normal findings. Troponin negative at less than 0.012 and proBNP of 44. Patient given morphine 4 mg IVP and Nitropaste placed. Patient admitted under our services with consultation to cardiology. Patient continued to report persistent pressure to midsternal chest, however states it was reduced if not cut in half after receiving the Nitropaste. Patient was started on low intensity heparin infusion for treatment of unstable angina. Troponins were trended at less than 0.012 x 3 draws. Patient was evaluated by machine stemmer and to undergo cardiac cath later this morning. Physical exam: Vital signs reviewed and stable. General: Nontoxic, no distress and appears stated age. Derm: Skin warm and dry, normal coloration for ethnicity. Head: Atraumatic, normocephalic and symmetric. Eyes: EOM's intact, no lid lag, and anicteric sclera Mouth: no lip lesions, mucus membranes moist Cardiovascular: regular rate and rhythm with normal S1S2, no murmur, positive posterior tibial pulses bilaterally, and cap refill < 2 seconds. Lungs: Respirations even, regular, and unlabored on room air. Lungs CTA bilaterally, no rhonchi, no rales, no wheezing, and no accessory muscle usage. Abdominal: soft, nontender to palpation, no guarding, no appreciable organomegaly Ext: ROM intact. No gross muscle atrophy, no edema, no contractures Neuro: Speech clear, face symmetrical and CN II-XII grossly intact with no noted focal neuro deficits Psych: Alert and oriented to person, place, time, and situation. Appropriate and pleasant affect. Assessment and Plan of Care: Unstable angina Chest pain, rule out acute coronary event History of CAD status post stenting Hypertension Hyperlipidemia -Cardiology consulted, evaluated patient and taking him for cardiac cath later this morning. -Troponins were trended at less than 0.012 x 3 draws. -Continue low intensity heparin infusion with close monitoring of PTT every 6 hours for goal therapeutic range of 45 to 79 seconds. PTT currently therapeutic at 48.6 seconds. -Telemetry monitoring -Continue cardiac medication regimen with aspirin 81 mg daily, atorvastatin 80 mg daily, Zetia 10 mg daily, lisinopril 5 mg daily, metoprolol succinate 50 mg daily and as needed sublingual nitro 0.4 mg sublingual every 5 minutes as needed for chest pain. -Lipid profile unremarkable. -Echocardiogram to be completed COPD History of lung nodule -Continue Ventolin inhaler every 6 hours as needed for wheezing/shortness of breath and Spiriva 2 puffs daily. -Patient to be provided with supplemental oxygen as needed to maintain SpO2 e qual to or greater than 92%. Currently on room air. History of CVAs -Continue daily aspirin 81 mg daily and atorvastatin 80 mg daily. Data and imaging reviewed: Morning labs reviewed. CBC unremarkable. Coagulation profile showing therapeutic PTT at 48.6. BMP normal findings. Blood glucose 103. Magnesium 2.1. Liver profile normal findings. Lipid profile unremarkable. Vital signs reviewed. Blood pressure 124/65, heart rate 74, respiratory rate 18, temp 97.8 F, and SpO2 of 95% on room air. CODE STATUS: Full code DVT prophylaxis: Patient placed on low intensity heparin infusion Anticipated discharge date: Pending clinical course Anticipated discharge place: Home Patient was seen independently by Nurse Practitioner. This document was prepared using [employer] dictation software. Please allow for er rors in paraffiner while rare they do occur. Juan Carey NP rendered care for this patient independently, reviewed the findings and plan as documented in the note above and agree with plan. I did not physically speak with or examine the patient on this date. Objective - Vital Signs Vital signs: Vital Signs Temp 97.8 F 10/09/24 07:39 Pulse 70 10/09/24 08:38 Resp 18 10/09/24 07:39 BP 124/65 10/09/24 07:39 Pulse Ox 95 10/09/24 08:28 FiO2 Intake & Output 10/08/24 10/09/24 10/09/24 18:59 06:59 18:59 Intake Total 540 160.298 Balance 540 160.298 Weight 104.326 kg Intake: Intake, IV Titration 160.298 Amount Heparin Sod,Pork in 0.45% 160.298 NaCl 25,000 unit In 0.45 % NaCl 1 250ml.bag @ 9. 585 UNITS/KG/HR 10 mls/hr IV .Q24H [facility] Rx#: [id number] Oral 540 Other: # Voids 1 - Labs CBC & Chem 7: 10/09/24 05:43 10/09/24 05:43 Labs: Abnormal Lab Results - Last 24 Hours (Table) 10/08/24 10/08/24 10/09/24 Range/Units 10:32 20:52 05:43 RBC 6.00 H (4.30-5.90) m/uL APTT 43.1 H 48.6 H (22.0-30.0) sec
--- NOTE | 2024-10-09 21:51 | CONS ---
CONSULTATION CHIEF COMPLAINT: Chest pain. HISTORY OF PRESENT ILLNESS: Jose Raul is a 68-year-old gentleman with history of coronary artery disease, status post angioplasty more than 10 years ago, hypertension, dyslipidemia, COPD, and prior history of CVA, who presented to hospital complaining of chest discomfort. He describes it as precordial chest pressure, mild to moderate in intensity that radiated to his back. At the time of my evaluation this morning, he continued to have chest pain. Due to this, I advised him to undergo cardiac catheterization for further evaluation. His troponins have been negative. EKG revealed sinus rhythm with nonspecific ST-T wave changes. The patient had been explained of risks, benefits, and alternatives. The patient has IV dye allergy and we are going to give him steroids and Benadryl. PAST MEDICAL HISTORY: Significant for coronary artery disease, status post angioplasty, hypertension, dyslipidemia, and COPD. MEDICATIONS: Include, 1. Prilosec. 2. Lipitor. 3. Albuterol. 4. Zestril. 5. Toprol. 6. Zetia. ALLERGIES: To gabapentin and IV dye. FAMILY HISTORY: Negative for premature coronary artery disease. SOCIAL HISTORY: Negative for current smoking, ETOH abuse, or drug abuse. REVIEW OF SYSTEMS: 14 out of 14 review of systems has been performed. Pertinents are as documented. OBJECTIVE: GENERAL: He is comfortable at rest. VITAL SIGNS: Stable. CHEST: Reveals good air entry bilaterally. HEART: Reveals first and second heart sounds. No gallop. No murmur. No rub. ABDOMEN: Soft, nontender. EXTREMITIES: Did not reveal any edema. Peripheral pulses are felt. ASSESSMENT: Unstable angina. PLAN: I will perform cardiac catheterization on him for definitive diagnosis. He understands risks, benefits, and alternatives. I will obtain a 2D echo. MMODL / IJN: [id number] /
[2024-10-10] MEDS ORDERED: ASPIRIN 81 MG PO SCH (09:00)
[2024-10-10 10:26] LABS: HCT 48.8 % (39.6-50.0); HGB 15.8 g/dL (13.0-17.0); MCH 27.8 pg (27.0-32.0); MCHC 32.4 g/dL (32.0-37.0); MCV 85.8 FL (80.0-97.0); Mean Platelet Volume 11.4 FL (9.5-12.2); NRBC Per 100 WBC 0 X 10*3/uL (0.00-0.01); Platelet Count 206 X 10*3/uL (140-440); RBC 5.69 X 10*6/uL (4.40-5.60); RDW 15.2 % (11.5-14.5); WBC 18.53 X 10*3/uL (4.50-10.00)
[2024-10-10 10:35] LABS: BUN/Creat Ratio 16.69 Ratio (12.00-20.00); Blood Urea Nitrogen 21.7 mg/dL (9.0-27.0); Calcium 8.5 mg/dL (8.7-10.3); Carbon Dioxide 22.8 mmol/L (21.6-31.8); Chloride 102 mmol/L (96-109); Glucose 149 mg/dL (70-110); Potassium 4.9 mmol/L (3.5-5.5); Sodium 135 mmol/L (135-145)
[2024-10-10] MEDS: methylPREDNISolone SOD SUCCI 125 MG/2 ML VIAL IV STA (12:28)
[2024-10-10] MEDS: diphenhydrAMINE 50 MG/ML 1 ML VIAL IVP STA ×2 (12:28→12:44)
[2024-10-10] MEDS: FAMOTIDINE 20 MG/2 ML VIAL IV STA (12:28)
--- NOTE | 2024-10-10 13:13 | CT ---
EXAMINATION TYPE: CT angio chest DATE OF EXAM: 10/10/2024 COMPARISON: None CLINICAL INDICATION: Male, 68 years old with history of Persistent back pain radiating into back; PHH , Persistant back pain radiating into back TECHNIQUE: CTA scan of the thorax is performed without and with IV Contrast, patient injected with 100 ml mL of Isovue 370, pulmonary embolism protocol. MIP images are created and reviewed. CT DLP: 547.[address] CTDI: mGy Automated exposure control for dose reduction was used. FINDINGS: LUNGS: There are mild emphysematous changes within the patellofemoral predominance. The lungs are grossly clear, there is no concerning parenchymal mass or nodule identified. There i s no pleural effusion or pneumothorax seen. The tracheobronchial tree is patent. MEDIASTINUM: There is satisfactory enhancement of the pulmonary artery and its branches, there is no CT evidence for pulmonary embolism. There are no greater than 1 cm hilar or mediastinal lymph nodes. No pericardial effusion is seen. . IMPRESSION: 1. NO PULMONARY EMBOLISM. 2. No thoracic aortic aneurysm or dissection. 3. No acute cardiopulmonary disease. [facility], , 10/10/2024 1:10 PM
[2024-10-10] MEDS: ORPHENADRINE 30 MG/ML 2 ML VIAL IVP STA (13:56)
[2024-10-10] MEDS: MAG HYDROX/AL HYDROX/SIMETH 30 ML, HYOSCYAMINE ELIXIR 10 ML, LIDOCAINE VISCOUS 2% 10 ML PO ONE (14:28)
--- NOTE | 2024-10-10 17:02 | P.PN ---
Subjective Progress Note Date: 10/10/24 Hospital Course: Patient is a pleasant 68-year-old male with a past medical history of CAD status post stenting, hypertension, hyperlipidemia, COPD not home oxygen dependent, lung nodule, and 2 previous CVAs. He presented to the emergency department with a chief complaint of chest pain. Patient reports pain is a persistent pressure to midsternal chest radiating into his back accompanied by shortness of breath stating a constant "heaviness". Patient reports he follows with printed circuit board panels developer at [facility] but has not seen in over a year. Patient reports this pressure is intense and he seems worse than his chest pain/pressure he experienced from his previous AL in 2006. Upon arrival to our facility, patient underwent evaluation in the emergency department. Vital signs upon arrival show blood pressure 136/82, heart rate 77, respiratory rate 20, temp 97.5 F, and SpO2 of 95% on room air. EKG completed showing normal sinus rhythm at 74 bpm with T wave i nversion in inferior lead III otherwise no significant T wave or ST abnormalities upon personal review and interpretation. Chest x-ray completed negative for acute cardiopulmonary process. Labs completed and reviewed. CBC unremarkable. Coagulation profile normal findings. BMP unremarkable. Blood glucose 87. Magnesium 2.0. Calcium 9.4. Liver profile normal findings. Troponin negative at less than 0.012 and proBNP of 44. Patient given morphine 4 mg IVP and Nitropaste placed. Patient admitted under our services with consultation to cardiology. Patient continued to report persistent pressure to midsternal chest, however states it was reduced if not cut in half after receiving the Nitropaste. Patient was started on low intensity heparin infusion for treatment of unstable angina. Troponins were trended at less than 0.012 x 3 draws. Patient was evaluated by printed circuit board panels developer and underwent cardiac cath on 10/09/2024 patent stent within the LAD and mild nonobstructive disease involving large dominant right coronary artery to circumflex and LAD. Cardiology recommending continued medical therapy to continue noncardiac causes of chest pain. Physical exam: Patient seen and fully evaluated at bedside this morning. He reports a persistent unchanged pain to midsternal chest radiating into the back described as a persistent pressure and currently rating 5-6 out of 10 at this time. He denies any radiation of pain and denies having any associated symptoms or anything making pain better or worse at this time. Vital signs reviewed and stable. General: Nontoxic, no distress and appears stated age. Derm: Skin warm and dry, normal coloration for ethnicity. Head: Atraumatic, normocephalic and symmetric. Eyes: EOM's intact, no lid lag, and anicteric sclera Mouth: no lip lesions, mucus membranes moist Cardiovascular: regular rate and rhythm with normal S1S2, no murmur, positive posterior tibial pulses bilaterally, and cap refill < 2 seconds. Lungs: Respirations even, regular, and unlabored on room air. Lungs CTA bilaterally, no rhonchi, no rales, no wheezing, and no accessory muscle usage. Abdominal: soft, nontender to palpation, no guarding, no appreciable organomegaly Ext: ROM intact. No gross muscle atrophy, no edema, no contractures Neuro: Speech clear, face symmetrical and CN II-XII grossly intact with no noted focal neuro deficits Psych: Alert and oriented to person, place, time, and situation. Appropriate and pleasant affect. Assessment and Plan of Care: Chest pain, acute coronary event ruled out Persistent chest pressure History of CAD status post stenting Hypertension Hyperlipidemia -Cardiology following, awaiting further recommendations. -Troponins were trended at less than 0.012 x 3 draws. -Echocardiogram completed showing preserved EF of 55 to 60% with no significant valvular or structural abnormalities reported. -Cardiac cath completed on 10/09/2024 patent stent within the LAD and mild nonobstructive disease involving large dominant right coronary artery to circumflex and LAD. Cardiology recommending continued medical therapy to continue noncardiac causes of chest pain. -Telemetry monitoring -Continue cardiac medication regimen with aspirin 81 mg daily, atorvastatin 80 mg daily, Zetia 10 mg daily, lisinopril 5 mg daily, metoprolol succinate 50 mg daily and as needed sublingual nitro 0.4 mg sublingual every 5 minutes as needed for chest pain. -Lipid profile unremarkable. -Order placed for CTA chest to further evaluate for noncardiac causes of chest pain. COPD History of lung nodule -Continue Ventolin inhaler every 6 hours as needed for wheezing/shortness of breath and Spiriva 2 puffs daily. -Patient to be provided with supplemental oxygen as needed to maintain SpO2 equal to or greater than 92%. Currently on room air. History of CVAs -Continue daily aspirin 81 mg daily and atorvastatin 80 mg daily. Data and imaging reviewed: -Echocardiogram completed showing preserved EF of 55 to 60% with no significant valvular or structural abnormalities reported. -Cardiac cath completed on 10/09/2024 patent stent within the LAD and mild nonobstructive disease involving large dominant right coronary artery to circumflex and LAD. Cardiology recommending continued medical therapy to continue noncardiac causes of chest pain. -Morning labs reviewed. CBC showing leukocytosis with WBC count of 18.53. BMP unremarkable. Blood glucose 149. -Morning labs reviewed and stable. Blood pressure 112/67, heart rate 74, respiratory rate 17, temp 97.4 F, and SpO2 of 95% on room air. CODE STATUS: Full code DVT prophylaxis: Patient placed on low intensity heparin infusion Anticipated discharge date: Pending clinical course Anticipated discharge place: Home Patient was seen independently by Nurse Practitioner. This document was prepared using Giving Assistant dictation software. Please allow for errors in loan interviewer while rare they do occur. Juan Carey NP rendered care for this patient independently, reviewed the findings and plan as documented in the note above and agree with plan. I did not physically speak with or examine the patient on this date. Objective - Vital Signs Vital signs: Vital Signs Temp 97.7 F 10/10/24 02:00 Pulse 74 10/10/24 02:00 Resp 17 10/10/24 02:00 BP 118/64 10/10/24 02:00 Pulse Ox 93 L 10/10/24 02:00 FiO2 Intake & Output 10/09/24 10/10/24 10/10/24 18:59 06:59 18:59 Intake Total 330 Balance 330 Intake: IV 330 Other: Voiding Method Toilet Toilet Urinal Urinal # Voids 1 2 - Labs CBC & Chem 7: 10/10/24 06:27 10/10/24 06:27 Labs: Abnormal Lab Results - Last 24 Hours (Table) 10/09/24 10/09/24 Range/Units 05:43 05:43 RBC 5.61 H (4.40-5.60) X 10*6/uL RDW 15.1 H (11.5-14.5) % Eosinophils # 0.40 H (0.04-0.35) X 10*3/uL Calcium 8.5 L (8.7-10.3) mg/dL
[2024-10-11 07:13] VITALS: BP 115/66; RESP 16; TEMP 97.7
--- NOTE | 2024-10-11 08:04 | P.PN ---
Subjective Progress Note Date: 10/10/24 SUBJECTIVE: Patient presented to the hospital because of worsening substernal chest pressure-like symptoms. Because of his symptoms concerning of typical symptoms he was ruled in as unstable angina and he underwent cardiac catheterization which showed minimal nonobstructive coronary artery disease with patent stent. Head: Normocephalic. Eyes: Sclerae nonicteric. Neck: Brisk carotid upstroke, no jugular venous distention. Lungs: Clear to auscultation. Heart: Regular rate and rhythm, S1-S2, no S3, no murmur or rub. Abdomen: Soft nontender, bowel sounds present, Extremities: No edema, Neuro: Alert, oriented, no focal neurological deficits. Detailed neuro exam was not performed. ASSESSMENT Unstable angina History of CAD status post PCI COPD Prior history of CVA Pertinent cardiac testing heart catheterization showed mild nonobstructive coronary artery disease CTA chest: No evidence of PE aortic dissection or major pulmonary pathology PLAN Recommend aspirin 81 mg, Lipitor 40 mg. He is on Zetia 10 mg daily, will continue Imdur 15 mg daily, metoprolol succinate 50 mg daily, Outpatient follow-up with cardiology. Patient is cleared to be discharge from cardiac standpoint. Would recommend outpatient follow-up. Da Martines MD, FACC, RPVI Thank you for allowing [facility] to participate in this patient's care. Please contact us in case of any followup questions. Objective - Vital Signs Vital signs: Vital Signs Temp 97.7 F 10/11/24 07:00 Pulse 69 10/11/24 07:00 Resp 16 10/11/24 07:00 BP 115/66 10/11/24 07:00 Pulse Ox 97 10/11/24 07:00 FiO2 Intake & Output 10/10/24 10/11/24 10/11/24 18:59 06:59 18:59 Intake Total 1376 Balance 1376 Intake: Intake, IV Titration 600 Amount Sodium Chloride 0.9% 1, 600 000 ml @ 75 mls/hr IV . [id number] OLIVIA Rx#:[id number] Oral 776 Other: Voiding Method Toilet Urinal # Voids 2 - Labs CBC & Chem 7: 10/10/24 06:27 10/10/24 06:27 Labs: Abnormal Lab Results - Last 24 Hours (Table) 10/10/24 10/10/24 Range/Units 06:27 06:27 WBC 18.53 H (4.50-10.00) X 10*3/uL RBC 5.69 H (4.40-5.60) X 10*6/uL RDW 15.2 H (11.5-14.5) % Glucose 149 H (70-110) mg/dL Calcium 8.5 L (8.7-10.3) mg/dL
[2024-10-11 08:42] VITALS: PULSE 68
[2024-10-11] MEDS: ISOSORBIDE MONONITRATE ER 15 MG TAB PO SCH (08:58)
[2024-10-11] MEDS: ATORVASTATIN 40 MG TAB PO SCH (08:59)
--- NOTE | 2024-10-11 17:22 | P.DS ---
Providers Date of admission: 10/08/24 13:01 Expected date of discharge: 10/11/24 Attending physician: Troy Dunbar Consults: 10/08/24 13:07 Consult Physician Urgent Consulting Provider: Manuel Barros Consult Reason/Comments: chest pain Do you want consulting provider notified?: Yes Primary care physician: Physician Nonstaff Hospital Course: Discharge Diagnosis: Unstable angina Chest pain, acute coronary event ruled out History of CAD status post stenting Hypertension Hyperlipidemia COPD History of lung nodule History of CVAs Hospital Course: Patient is a pleasant 68-year-old male with a past medical history of CAD status post stenting, hypertension, hyperlipidemia, COPD not home oxygen dependent, lung nodule, and 2 previous CVAs. He presented to the emergency department with a chief complaint of chest pain. Patient reports pain is a persistent pressure to midsternal chest radiating into his back accompanied by shortness of breath stating a constant "heaviness". Patient reports he follows with apparel stock checker at [facility] but has not seen in over a year. Patient reports this pressure is intense and he seems worse than his chest pain/pressure he experienced from his previous [place] in 2006. Upon arrival to our facility, patient underwent evaluation in the emergency department. Vital signs upon arrival show blood pressure 136/82, heart rate 77, respiratory rate 20, temp 97.5 F, and SpO2 of 95% on room air. EKG completed showing normal sinus rhythm at 74 bpm with T wave inversion in inferior lead III otherwise no significant T wave or ST abnormalities upon personal review and interpretation. Chest x-ray completed negative for acute cardiopulmonary process. Labs completed and reviewed. CBC unremarkable. Coagulation profile normal findings. BMP unremarkable. Blood glucose 87. Magnesium 2.0. Calcium 9.4. Liver profile normal findings. Troponin negative at less than 0.012 and proBNP of 44. Patient given morphine 4 mg IVP and Nitropaste placed. Patient admitted under our services with consultation to cardiology. Patient continued to report persistent pressure to midsternal chest, however states it was reduced if not cut in half after receiving the Nitropaste. Patient was started on low intensity heparin infusion for treatment of unstable angina. Troponins were trended at less than 0.012 x 3 draws. Patient was evaluated by apparel stock checker and underwent cardiac cath on 10/09/2024 patent stent within the LAD and mild nonobstructive disease involving large dominant right coronary artery to circumflex and LAD. Cardiology recommending continued medical therapy to continue noncardiac causes of chest pain. Echocardiogram completed showing preserved EF of 55 to 60% with no significant valvular or structural abnormalities reported. CTA chest was completed negative for pulmonary emboli showing no acute cardiopulmonary process. Materials Buyer discontinuing lisinopril and starting patient on isosorbide mononitrate 15 mg daily. Patient to otherwise continue atorvastatin 80 mg daily, aspirin 81 mg daily, metoprolol 50 mg daily, and Zetia 10 mg daily. Patient cleared from cardiac perspective for discharge and is medically optimized and stable for discharge home. Patient instructed he will need to follow-up outpatient with his PCP in 1 to 2 days at OR and with apparel stock checker in 1 week. Physical exam: Vital signs reviewed and stable. General: Nontoxic, no distress and appears stated age. Derm: Skin warm and dry, normal coloration for ethnicity. Head: Atraumatic, normocephalic and symmetric. Eyes: EOM's intact, no lid lag, and anicteric sclera Mouth: no lip lesions, mucus membranes moist Cardiovascular: regular rate and rhythm with normal S1S2, no murmur, positive posterior tibial pulses bilaterally, and cap refill < 2 seconds. Lungs: Respirations even, regular, and unlabored on room air. Lungs CTA bilaterally, no rhonchi, no rales, no wheezing, and no accessory muscle usage. Abdominal: soft, nontender to palpation, no guarding, no appreciable organomegaly Ext: ROM intact. No gross muscle atrophy, no edema, no contractures Neuro: Speech clear, face symmetrical and CN II-XII grossly intact with no noted focal neuro deficits Psych: Alert and oriented to person, place, time, and situation. Appropriate and pleasant affect. A total of 34 minutes of time were spent preparing this complex discharge summary. Pt was discharged on 10/11/2024 at 9:13 AM. Patient was seen independently by Nurse Practitioner. This document was prepared using ProDeaf dictation software. Please allow for errors in motorman/woman while rare they do occur. Juan Carey NP rendered care for this patient independently, reviewed the findings and plan as documented in the note above. I did not physically speak with or examine the patient on this date. Patient Condition at Discharge: Stable Plan - Discharge Summary Discharge Rx Participant: No New Discharge Prescriptions: New Isosorbide Mononitrate ER [Imdur] 15 mg PO DAILY 30 Days #30 tab Continue Atorvastatin [Lipitor] 80 mg PO DAILY Tiotropium 2.5 Mcg/Puff [Spiriva Respimat 2.5 Mcg] 2 puff INHALATION RT-DAILY Aspirin EC [Ecotrin Low Dose] 81 mg PO DAILY Albuterol Sulfate [Albuterol Sulfate Hfa] 2 puff PO RT-Q6H PRN PRN Reason: Shortness Of Breath Metoprolol Succinate (ER) [Toprol XL] 50 mg PO DAILY Ezetimibe [Zetia] 10 mg PO DAILY Omeprazole [PriLOSEC] 20 mg PO AC-BID methocarbamoL [Robaxin-750] 750 mg PO TID PRN PRN Reason: BACK PAIN Magnesium Oxide [Mag-Ox] 400 mg PO DAILY Discontinued lisinopriL [Zestril] 5 mg PO DAILY Discharge Medication List Albuterol Sulfate [Albuterol Sulfate Hfa] 2 puff PO RT-Q6H PRN 10/08/24 [History] Aspirin EC [Ecotrin Low Dose] 81 mg PO DAILY 10/08/24 [History] Atorvastatin [Lipitor] 80 mg PO DAILY 10/08/24 [History] Ezetimibe [Zetia] 10 mg PO DAILY 10/08/24 [History] Magnesium Oxide [Mag-Ox] 400 mg PO DAILY 10/08/24 [History] Metoprolol Succinate (ER) [Toprol XL] 50 mg PO DAILY 10/08/24 [History] Omeprazole [PriLOSEC] 20 mg PO AC-BID 10/08/24 [History] Tiotropium 2.5 Mcg/Puff [Spiriva Respimat 2.5 Mcg] 2 puff INHALATION RT-DAILY 10/08/24 [History] methocarbamoL [Robaxin-750] 750 mg PO TID PRN 10/08/24 [History] Isosorbide Mononitrate ER [Imdur] 15 mg PO DAILY 30 Days #30 tab 10/11/24 [Rx] Follow up Appointment(s)/Referral(s): Hank Carrera DO [STAFF PHYSICIAN] - 1 Week Nonstaff,Physician [Primary Care Provider] - 1-2 days Patient Instructions/Handouts: Chest Pain (DC) Activity/Diet/Wound Care/Special Instructions: Activity: As tolerated. Take breaks as needed. Diet: Heart healthy and carb consistent diet. Avoid salts, or foods with hidden salts such as canned or boxed foods and frozen dinners. Extra salt makes your heart work harder and traps the fluid in your body for longer. Special Instructions: Take all of your medications as directed and remember to keep all of your doctor's appointments and follow-up as needed. Thank you for allowing us to participate in your care, it was truly a pleasure having you for our patient!!! Discharge/Stand Alone Forms: Work/School Release Discharge Disposition: HOME SELF-CARE
== END 2024-10-11 10:25 | disposition home or self-care (01) | DRG 287 ==
LOC: EC 09:58 → 6NMEDSUR 13:01 → OBSVTOIN 13:01 → 6NMEDSUR 15:54
PROVIDERS: ADMIT Student in an Organized Health Care Education/Training Program; ATTEND Student in an Organized Health Care Education/Training Program
PROC: B2111ZZ Fluoroscopy of Multiple Coronary Arteries using Low Osmolar Contrast (ICD-10-PCS; 2024-10-09)
PROC: 4A023N7 Measurement of Cardiac Sampling and Pressure, Left Heart, Percutaneous Approach (ICD-10-PCS; principal; 2024-10-09 15:30)
DX: I25.110 Atherosclerotic heart disease of native coronary artery with unstable angina pectoris (principal); I10 Essential (primary) hypertension; Z95.5 Presence of coronary angioplasty implant and graft; E78.5 Hyperlipidemia, unspecified; I25.10 Atherosclerotic heart disease of native coronary artery without angina pectoris; I25.2 Old myocardial infarction; J44.9 Chronic obstructive pulmonary disease, unspecified; K21.9 Gastro-esophageal reflux disease without esophagitis; Z79.02 Long term (current) use of antithrombotics/antiplatelets; Z79.82 Long term (current) use of aspirin; Z79.899 Other long term (current) drug therapy; Z86.73 Personal history of transient ischemic attack (TIA), and cerebral infarction without residual deficits; Z91.041 Radiographic dye allergy status; Z88.8 Allergy status to other drugs, medicaments and biological substances; Z28.21 Immunization not carried out because of patient refusal; Z87.891 Personal history of nicotine dependence
CPT/HCPCS: 36415; 71046; 71275; 80048; 80053; 80061; 83690; 83735; 83880; 84484; 85025; 85027; 85610; 85730; 93005; 93306; 93458; 94640; 94760; 96365; 96366; 96375; 96376; 99285

== ENCOUNTER → 2024-10-08 | Outpatient (CLI) | payer OTHER ==
[2024-10-08 08:22] VITALS: BP 150/96; PULSE 77; RESP 16
--- NOTE | 2024-10-08 14:53 | P.PAINPG ---
PQRS Measure Charge Sheet Comment: HISTORY OF PRESENT ILLNESS: A 68 yr old male presents today w severe and chronic LBP > 6 mo secondary to radiculopathy, spondylosis and facet arthropathy without myelopathy for evaluation. Pt states pain level is provoked at 8 /10 in intensity, constant, localized in the lumbar spine , predominantly axial, sharp in character w occasional shooting pain towards the back of the LEs. Pain is provoked by lifting. Pain is alleviated by PT x 4 wks which he is currently in, medications, topical Lidocaine, repositioning and rest . Interventional procedures includes Medications include Aleve, Ibu REVIEW OF ORGAN SYSTEMS: CONSTITUTIONAL: No fevers or chills. No recent weight loss. NEUROLOGICAL: + numbness and tingling along the distal extremities. No seizure disorders or headaches. MUSCULOSKELETAL: + pain PSYCHIATRIC: Denies current depression or suicidal thoughts. Physical Examinations : Constitutional : Cooperative , not in acute distress . Neurologic : Cranial nerve II to XII intact. No focal neurological deficits. Psychiatric : alert & oriented x 3. Matching mood & appropriate affect. Judgment & insight intact. Musculoskeletal : Cervical Spine Motor strength in the deltoid and biceps: Normal right side. Normal Left side Motor strength biceps and the wrist extensors: Normal right side . Normal left side Motor strength in the triceps muscle: Normal right side. Normal left side Deep tendon reflexes: Normal at the biceps. Normal at Brachioradialis. Normal at triceps Vertebral body tenderness to deep palpation over Cervical facet loading test: positive bilaterally Spurling test: positive bilaterally Neck distraction test: positive bilaterally William sign: positive bilaterally Lumbar spine Motor strength lower extremities ,thigh and legs 5/5 Right side , 5/5 Left side Deep tendon reflexes : Normal Knee Jerk. Normal Ankle Jerk Vertebral body tenderness over L4 Villalba Test positive BL L4-L5 Lumbar facet Loading Test: positive Right / positive Left Range of motion of the lumbar spine Flexion 30 degrees, extension 10 degrees Straight Leg Raise test: Left/ Right positive at degrees Erick test: positive right / positive left. Severe tenderness over the Sacroiliac joint on the Right / Left sides Gaenslen test: positive bilaterally Seated flexion test: positive bilaterally. Sacral spine : Severe tenderness over the Sacroiliac joint: right side / left side Range of motion: Flexion of the lumbar spine <60 degrees Range of motion: Extension of the lumbar spine <20 degrees Gaenslen's Test positive Erick test: positive right side / left side Thigh Thrust Test Sacral Thrust Test Imaging: Lumbosacral x ray from 07/23/[address] non contrast lumbar spine from 09/22/24 reviewed Assessment/ Plan : L4-L5 radiculopathy Recommendation of DAQUAN L4-L5 #1. Risks, benefits of procedure discussed and pt verbalized understanding. Protocol for discontinuation/ continuation of medications shawn procedure discussed. Need medical clearance for Plavix disc from Dr King from the [facility] in [place]. All questions answered. I have spent greater than 30 minutes on patient care today. Dr Tobin was available by phone for the evaluation of this patient. The time was used to review the medical records including relevant urine studies and Prescription history (MAPs), review of the available imaging, evaluation and examination of the patient, coordination of care with the medical staff and if applicable referring physicians, as well as creation of the medical record PQRS Narrative: Hx Alcohol Use (MH) No Home Medications: Ambulatory Orders Albuterol Sulfate [Albuterol Sulfate Hfa] 2 puff PO RT-Q6H PRN 01/11/22 Aspirin [Adult Low Dose Aspirin EC] 81 mg PO DAILY 01/11/22 Tiotropium 2.5 Mcg/Puff [Spiriva Respimat 2.5 Mcg] 2 puff INHALATION RT-DAILY 01/11/22 Atorvastatin [Lipitor] 20 mg PO HS 30 Days #30 tab 01/13/22 Clopidogrel [Plavix] 75 mg PO DAILY 30 Days #30 tab 01/13/22 Acetaminophen Tab [Tylenol Tab] 500 mg PO Q6H PRN #24 tablet 08/23/22 Naproxen [Naprosyn] 375 mg PO Q12HR PRN #20 tablet 08/23/22 Controlled Substance Measures - Controlled Substance Measures Is patient prescribed a controlled substance at discharge?: No
== END ==
LOC: PNWHC3 07:49
PROVIDERS: ATTEND Specialist
DX: M54.16 Radiculopathy, lumbar region (principal); Z91.041 Radiographic dye allergy status; Z88.8 Allergy status to other drugs, medicaments and biological substances
CPT/HCPCS: 99211

== ENCOUNTER 2024-10-27 07:52 | Day surgery (SDC) | payer OTHER ==
[2024-10-26 10:48] VITALS: BMI 31.1
[~2024-10-27 07:52] MED LIST: LACTATED RINGERS 1,000 ML IV SCH
[2024-10-27 08:13] VITALS: TEMP 98.4
[2024-10-27] MEDS ORDERED: methylPREDNISolone ACETATE 80 MG/ML 1 ML VIAL ONE (09:15)
--- NOTE | 2024-10-27 09:38 | P.PCN ---
Description of Procedure: PREOPERATIVE DIAGNOSIS: 1- Lumbar Degenerative Disc Diseases 2-Lumbar spondylosis with Facet arthropathy without myelopathy. 3-lumbar spinal stenosis POSTOPERATIVE DIAGNOSIS: 1-lumbar degenerative disc disease. 2-lumbar spondylosis with facet arthropathy without myelopathy. 3-lumbar spinal stenosis. PROCEDURE Injection of steroid at L4- 5 epidural space under fluoroscopic guidance. ANESTHESIA: Lidocaine 1% subcutaneously. In OR continuous pulse ox, EKG, blood pressure and verbal communication was maintained with the patient. EBL: Minimal PROCEDURE INDICATION: Before the procedure were discussed with the patient detailed procedure, alternatives, complications including infection, bleeding, nerve damage, paralysis all of which could be permanent. Patient understands and all questions were answered. PROCEDURE DESCRIPTION : After getting consent, patient in OR in prone position. Back was prepped with chlorhexidine and draped in sterile fashion. After injecting 10 mL of 1% lidocaine subcutaneously, a 20-gauge Tuohy needle was introduced at L4 5 interspace with loss of resistance technique using a syringe filled with air. Negative CSF, negative blood, negative paresthesia. Needle position was confirmed with AP and lateral view of the fluoroscope. After repeat negative aspiration 6 mL solution was injected intermittently which consists of 5 mL of preservative-free normal saline mixed with 1 mL of 80 mg Depo-Medrol. Needle was withdrawn intact. Skin was cleansed and Band-Aids was applied. No contrast was used because of patient's allergy. DISPOSITION / PLANS: The patient tolerated the procedure well. No complication. The patient was placed in a supine position and transferred to the recovery area in a stable condition for observation. There was no evidence of lower extremity motor or sensory deficit after the procedure. Patient was discharged from the recovery room after meeting discharge criteria. Home discharge instructions were given to the patient by the staff. The patient was reexamined prior to discharge. The patient will schedule a follow up in the clinic in 2-4 weeks.
[2024-10-27 09:45] VITALS: BP 118/68; PULSE 68; RESP 18
--- NOTE | 2024-10-27 12:47 | FL ---
EXAMINATION TYPE: FL guided pain mgmt statistic DATE OF EXAM: 10/27/2024 FLUOROSCOPY Lumbar Epid Inj 12sec fluoro time .[id number] Tracey Pablo 2 images submitted [facility], , 10/27/2024 12:44 PM
== END 2024-10-27 10:01 | disposition home or self-care (01) ==
LOC: ORPAIN 07:52
PROVIDERS: ATTEND Pain Medicine Interventional Pain Medicine
DX: M51.369 Other intervertebral disc degeneration, lumbar region without mention of lumbar back pain or lower extremity pain (principal); M47.816 Spondylosis without myelopathy or radiculopathy, lumbar region; M48.061 Spinal stenosis, lumbar region without neurogenic claudication; Z88.8 Allergy status to other drugs, medicaments and biological substances; Z91.041 Radiographic dye allergy status
CPT/HCPCS: 62323; J1010

== ENCOUNTER 2024-10-31 05:06 | Emergency (ER) | payer OTHER ==
[2024-10-31 05:19] VITALS: RESP 18; TEMP 97.4
--- NOTE | 2024-10-31 06:39 | ED ---
Back Pain [facility] - General Chief Complaint: Back Pain/Injury Stated Complaint: Back Pain Time Seen by Provider: 10/31/24 06:18 Source: patient, RN notes reviewed Mode of arrival: ambulatory Limitations: no limitations - History of Present Illness Initial Comments: This is a 68-year-old male who presents to the emergency department for back pain. Patient reports a history of chronic back pain and receives pain injections. States that he received one earlier this week and had been doing fine. However, he reinjured his back at work this evening. States that he is having difficulty moving and pain goes down both legs. Denies any loss of bowel/bladder control or saddle anesthesia. Does not take any medication at home for his pain. MD Complaint: back pain - Related Data Home Medications Medication Instructions Recorded Confirmed Albuterol Sulfate [Albuterol 2 puff PO RT-Q6H PRN 10/08/24 10/26/24 Sulfate Hfa] Aspirin EC [Ecotrin Low Dose] 81 mg PO DAILY 10/08/24 10/26/24 Atorvastatin [Lipitor] 80 mg PO DAILY 10/08/24 10/26/24 Ezetimibe [Zetia] 10 mg PO DAILY 10/08/24 10/26/24 Magnesium Oxide [Mag-Ox] 400 mg PO DAILY 10/08/24 10/26/24 Metoprolol Succinate (ER) [Toprol 50 mg PO DAILY 10/08/24 10/26/24 XL] Omeprazole [PriLOSEC] 20 mg PO AC-BID 10/08/24 10/26/24 Tiotropium 2.5 Mcg/Puff [Spiriva 2 puff INHALATION RT-DAILY 10/08/24 10/27/24 Respimat 2.5 Mcg] methocarbamoL [Robaxin-750] 750 mg PO TID PRN 10/08/24 10/26/24 Previous Rx's Medication Instructions Recorded Isosorbide Mononitrate ER [Imdur] 15 mg PO DAILY 30 Days #30 tab 10/11/24 Cyclobenzaprine [Flexeril] 10 mg PO TID PRN #30 tab 10/31/24 HYDROcodone/APAP 7.5-325MG [[place] 1 tab PO Q6HR PRN 3 Days #12 tab 10/31/24 7.5-325] predniSONE 50 mg PO DAILY 5 Days #5 tab 10/31/24 Allergies Allergy/AdvReac Type Severity Reaction Status Date / Time gabapentin Allergy Rash/Hives Verified 10/31/24 05:19 Iodinated Contrast Media Allergy Anaphylaxis Verified 10/31/24 05:19 Review of Systems ROS Statement: Those systems with pertinent positive or pertinent negative responses have been documented in the HPI. ROS Other: All systems not noted in ROS Statement are negative. Past Medical History Past Medical History: CVA/TIA, Hyperlipidemia, Hypertension Additional Past Medical History / Comment(s): cva x2-NO LASTING EFFECTS-HAD TPA BOTH TIMES Last Myocardial Infarction Date:: 2006 History of Any Multi-Drug Resistant Organisms: None Reported Past Surgical History: Cholecystectomy, Heart Catheterization, Heart Catheterization With Stent, Orthopedic Surgery Additional Past Surgical History / Comment(s): with cardiac stent; discectomy; R ankle sx; right eye cataract surgery, COLONOSCOPY Past Anesthesia/Blood Transfusion Reactions: No Reported Reaction Date of Last Stent Placement:: 2006 Past Psychological History: No Psychological Hx Reported Smoking Status: Former smoker Past Alcohol Use History: None Reported Past Drug Use History: None Reported - Past Family History Father Family Medical History: Cancer Additional Family Medical History / Comment(s): liver cancer Mother Additional Family Medical History / Comment(s): SLE; General Exam Limitations: no limitations General appearance: alert, in distress Head exam: Present: atraumatic, normocephalic, normal inspection Respiratory exam: Present: normal lung sounds bilaterally. Absent: respiratory distress, wheezes, rales, rhonchi, stridor Cardiovascular Exam: Present: regular rate, normal rhythm, normal heart sounds. Absent: systolic murmur, diastolic murmur, rubs, gallop, clicks Neurological exam: Present: alert, oriented X3, CN II-XII intact Psychiatric exam: Present: normal affect, normal mood Skin exam: Present: warm, dry, intact, normal color. Absent: rash Course Vital Signs 10/31/24 10/31/24 05:17 09:48 Temperature 97.4 F L Pulse Rate 74 64 Respiratory 18 18 Rate Blood Pressure 130/77 119/78 O2 Sat by Pulse 96 95 Oximetry Medical Decision Making - Medical Decision Making This is a 68 year old male who presents to the emergency department for back pain. Was pt. sent in by a medical professional or institution? @ -No Did you speak to anyone other than the patient for history? @ -No Did you review nursing and triage notes? @ -Yes, and I agree, it is accurate with regards to the patient's symptoms. Were old charts reviewed? @ -No Differential Diagnosis? @ -Differential Back Pain: Strain, zoster, cauda equina syndrome, epidural abscess, vertebral oste omyelitis, discitis, fracture, subluxation, disc herniation, DJD, spinal stenosis, dissection, AAA, pancreatitis, peptic ulcer disease, pyelonephritis, kidney stone, this is not meant to be an all-inclusive list. EKG interpreted by me (3pts min.)? @ -Not obtained X-rays interpreted by me (1pt min.)? @ -Not obtained CT interpreted by me (1pt min.)? @ -Not obtained U/S interpreted by me (1pt. min.)? @ -Not obtained What testing was considered but not performed? (CT, X-rays, U/S, labs)? Why? @ -None What meds were considered but not given? Why? @ -None Did you discuss the management of the patient with other professionals? @ -No Did you reconcile home meds? @ -No Was smoking cessation discussed for >3mins.? @ -No Was critical care preformed (if so, how long)? @ -No Were there social determinants of health that impacted care today? How? (Homelessness, low income, unemployed, alcoholism, drug addiction, transportation, low edu. Level, literacy, decrease access to med. care, [facility], rehab)? @ -No Was there de-escalation of care discussed even if they declined? (Discuss DNR or withdrawal of care, Hospice)? @ -No What co-morbidities impacted this encounter? (DM, HTN, Smoking, COPD, CAD, Cancer, CVA, Hep., AIDS, mental health diagnosis, sleep apnea, morbid obesity)? @ -None Was patient admitted / discharged? @ -Discharged. Given that the pain is chronic without any new injuries, no imaging was obtained. He had no red flag signs or symptoms such as loss of bowel/bladder control or saddle anesthesia. Pain managed in the emergency department. Rx for prednisone and flexeril prescribed. He was given a 3-day course of Hollywood to be taken sparingly given the extent of his pain. Otherwise advised he follow back up with his primary care provider. Patient discharged home in stable condition. Case discussed with ED attending, Dr. Gautam. Return precautions reviewed in depth, the patient is instructed to return to the emergency department with any new, worsening, or concerning symptoms. Patient verbalized understanding. Undiagnosed new problem with uncertain prognosis? @ -None Drug Therapy requiring intensive monitoring for toxicity (Heparin, Nitro, Insulin, Cardizem)? @ -None Were any procedures done? @ -None Diagnosis/symptom? @ -Lumbar strain, lumbar radiculopathy Acute, or Chronic, or Acute on Chronic? @ -Acute Uncomplicated (without systemic symptoms) or Complicated (systemic symptoms)? @ -Uncomplicated Side effects of treatment? @ -None Exacerbation, Progression, or Severe Exacerbation] @ -Not applicable Poses a threat to life or bodily function? @ -The pain is limiting his ability to function. Disposition Clinical Impression: Strain of lumbar region Disposition: HOME SELF-CARE Instructions (If sedation given, give patient instructions): Low Back Strain (ED), Acute Low Back Pain (ED) Additional Instructions: Return to the emergency department with any new, worsening, or concerning symptoms. Take the prednisone daily for 5 days. Take the Flexeril up to 3 times daily. Take the Hollywood sparingly when your pain is the most severe. Follow up with your primary care provider in 1-2 days. Prescriptions: Cyclobenzaprine [Flexeril] 10 mg PO TID PRN #30 tab PRN Reason: Pain HYDROcodone/APAP 7.5-325MG [[place] 7.5-325] 1 tab PO Q6HR PRN 3 Days #12 tab PRN Reason: Pain predniSONE 50 mg PO DAILY 5 Days #5 tab Is patient prescribed a controlled substance at d/c from ED?: Yes When asked, does pt state using other controlled substances?: No If prescribed controlled substance>3 days was MAPS reviewed?: Prescribed <3 Days Referrals: Andrea King MD [Primary Care Provider] - 1-2 days Time of Disposition: 09:27
[2024-10-31] MEDS: KETOROLAC 15 MG/ML 1 ML VIAL IM STA (07:25)
[2024-10-31] MEDS: HYDROmorphone 1 MG/ML 1 ML SYRINGE IM STA ×2 (07:26→08:38)
[2024-10-31] MEDS: ORPHENADRINE 30 MG/ML 2 ML VIAL IM STA (07:27)
[2024-10-31] MEDS: DEXAMETHASONE SOD PHOSPHATE 10 MG/ML 1 ML VIAL IM STA (08:39)
[2024-10-31] MEDS: HYDROcodone/APAP 10-325MG 1 EACH TAB PO ONE (09:45)
[2024-10-31 09:49] VITALS: BP 119/78; PULSE 64
== END 2024-10-31 10:06 | disposition home or self-care (01) ==
LOC: EC 05:06
DX: S39.012A Strain of muscle, fascia and tendon of lower back, initial encounter (principal); Z87.891 Personal history of nicotine dependence; Z91.041 Radiographic dye allergy status; Z88.8 Allergy status to other drugs, medicaments and biological substances; Z86.73 Personal history of transient ischemic attack (TIA), and cerebral infarction without residual deficits; Z90.49 Acquired absence of other specified parts of digestive tract; Z95.5 Presence of coronary angioplasty implant and graft; X58.XXXA Exposure to other specified factors, initial encounter
CPT/HCPCS: 99283; 96372 ×5; J1100; J2360; J1171; J1885

== ENCOUNTER → 2024-11-19 | Outpatient (CLI) | payer OTHER ==
[2024-11-19 08:55] VITALS: BP 133/84; PULSE 78; RESP 16
--- NOTE | 2024-11-19 15:10 | P.PAINPG ---
Objective - Vital Signs Vital signs: Intake & Output 11/18/24 11/19/24 11/19/24 18:59 06:59 18:59 Weight 104.326 kg PQRS Measure Charge Sheet Comment: HISTORY OF PRESENT ILLNESS: A 68 yr old male presents today w severe and chronic LBP > 6 mo secondary to radiculopathy, spondylosis and facet arthropathy without myelopathy for evaluation s/p DAQUAN L4-L5 #1. Pt states he experienced 60% pain relief x 2-3 wks s/p procedure. Pt states pain level is provoked at 5-6 /10 in intensity, constant, localized in the lumbar spine , predominantly axial, sharp in character w occasional shooting pain towards the back of the LEs. Pain is provoked by lifting. Pain is alleviated by PT x 6 wks which ended in Fall 2023, physician guided exercises every other day since Fall 2023, medications, topical, repositioning and rest . Interventional procedures includes DAQUAN L4-L5 x1 Medications include Aleve, Ibu, Lidocaine REVIEW OF ORGAN SYSTEMS: CONSTITUTIONAL: No fevers or chills. No recent weight loss. NEUROLOGICAL: + numbness and tingling along the distal extremities. No seizure disorders or headaches. MUSCULOSKELETAL: + pain PSYCHIATRIC: Denies current depression or suicidal thou ghts. Physical Examinations : Constitutional : Cooperative , not in acute distress . Neurologic : Cranial nerve II to XII intact. No focal neurological deficits. Psychiatric : alert & oriented x 3. Matching mood & appropriate affect. Judgment & insight intact. Musculoskeletal : Cervical Spine Motor strength in the deltoid and biceps: Normal right side. Normal Left side Motor strength biceps and the wrist extensors: Normal right side . Normal left side Motor strength in the triceps muscle: Normal right side. Normal left side Deep tendon reflexes: Normal at the biceps. Normal at Brachioradialis. Normal at triceps Vertebral body tenderness to deep palpation over Cervical facet loading test: positive bilaterally Spurling test: positive bilaterally Neck distraction test: positive bilaterally William sign: positive bilaterally Lumbar spine Motor strength lower extremities ,thigh and legs 5/5 Right side , 5/5 Left side Deep tendon reflexes : Normal Knee Jerk. Normal Ankle Jerk Vertebral body tenderness over L5 Villalba Test positive BL L4-L5 Lumbar facet Loading Test: positive Right / positive Left Range of motion of the lumbar spine Flexion 30 degrees, extension 10 degrees Straight Leg Raise test: Left/ Right positive at <35 degrees Erick test: positive right / positive left. Severe tenderness over the Sacroiliac joint on the Right / Left sides Gaenslen test: positive bilaterally Seated flexion test: positive bilaterally. Sacral spine : Severe tenderness over the Sacroiliac joint: right side / left side Range of motion: Flexion of the lumbar spine <60 degrees Range of motion: Extension of the lumbar spine <20 degrees Gaenslen's Test positive Erick test: positive right side / left side Thigh Thrust Test Sacral Thrust Test Imaging: Lumbosacral x ray from 07/23/[address] non contrast lumbar spine from 09/22/24 reviewed Assessment/ Plan : L4-L5 radiculopathy Recommendation of DAQUAN L5-S1 #2 and medication management [place] 7.5/325mg #60 w 1 RF. Use, side effects, adverse reactions, safe storage discussed. Opiate/ narcotic agreement signed 11/19/24. Risks, benefits of procedure discussed and pt verbalized understanding. Protocol for discontinuation/ continuation of medications shawn procedure discussed. All questions answered. I have spent greater than 30 minutes on patient care today. Dr Tobin was available by phone for the evaluation of this patient. The time was used to review the medical records including relevant urine studies and Prescription history (MAPs), review of the available imaging, evaluation and examination of the patient, coordination of care with the medical staff and if applicable referring physicians, as well as creation of the medical record - Pain Location Lower Back Non-Pharmacological Interventions: Heat, Physical Therapy Pharmacological Interventions: Epidural, Scheduled Medication PQRS Narrative: Hx Alcohol Use (MH) No Home Medications: Ambulatory Orders Albuterol Sulfate [Albuterol Sulfate Hfa] 2 puff PO RT-Q6H PRN 10/08/24 Aspirin EC [Ecotrin Low Dose] 81 mg PO DAILY 10/08/24 Atorvastatin [Lipitor] 80 mg PO DAILY 10/08/24 Ezetimibe [Zetia] 10 mg PO DAILY 10/08/24 Magnesium Oxide [Mag-Ox] 400 mg PO DAILY 10/08/24 Metoprolol Succinate (ER) [Toprol XL] 50 mg PO DAILY 10/08/24 Omeprazole [PriLOSEC] 20 mg PO AC-BID 10/08/24 Tiotropium 2.5 Mcg/Puff [Spiriva Respimat 2.5 Mcg] 2 puff INHALATION RT-DAILY 10/08/24 methocarbamoL [Robaxin-750] 750 mg PO TID PRN 10/08/24 Isosorbide Mononitrate ER [Imdur] 15 mg PO DAILY 30 Days #30 tab 10/11/24 Cyclobenzaprine [Flexeril] 10 mg PO TID PRN #30 tab 10/31/24 HYDROcodone/APAP 7.5-325MG [[place] 7.5-325] 1 tab PO Q6HR PRN 3 Days #12 tab 10/31/24 predniSONE 50 mg PO DAILY 5 Days #5 tab 10/31/24 HYDROcodone/APAP 7.5-325MG [[place] 7.5-325] 1 tab PO BID PRN 30 Days #60 tab 11/19/24 HYDROcodone/APAP 7.5-325MG [[place] 7.5-325] 1 tab PO BID PRN 30 Days #60 tab Controlled Substance Measures - Controlled Substance Measures Is patient prescribed a controlled substance at discharge?: Yes When asked, does pt state using other controlled substances?: No If prescribed controlled substance>3 days was MAPS reviewed?: Yes If Rx opioid, was Start Talking consent form obtained?: Yes Was information provided regarding opioid addiction?: Yes
== END ==
LOC: PNWHC3 08:28
PROVIDERS: ATTEND Specialist
DX: M54.16 Radiculopathy, lumbar region (principal); Z88.8 Allergy status to other drugs, medicaments and biological substances; Z91.041 Radiographic dye allergy status
CPT/HCPCS: 99211

== ENCOUNTER 2024-12-11 05:41 | Day surgery (SDC) | payer OTHER ==
[2024-12-08 16:19] VITALS: BMI 31.1
[2024-12-11 06:31] VITALS: RESP 18; TEMP 98.3
[2024-12-11] MEDS ORDERED: LACTATED RINGERS 1,000 ML IV SCH (06:54)
[2024-12-11] MEDS ORDERED: methylPREDNISolone ACETATE 80 MG/ML 1 ML VIAL ONE (07:09)
--- NOTE | 2024-12-11 07:35 | P.PCN ---
Description of Procedure: PREOPERATIVE DIAGNOSIS: 1- Lumbar Degenerative Disc Diseases 2-Lumbar spondylosis with Facet arthropathy without myelopathy. 3-lumbar spinal stenosis POSTOPERATIVE DIAGNOSIS: 1-lumbar degenerative disc disease. 2-lumbar spondylosis with facet arthropathy without myelopathy. 3-lumbar spinal stenosis. PROCEDURE Injection of steroid at L5-S1 epidural space under fluoroscopic guidance. ANESTHESIA: Lidocaine 1% subcutaneously. In OR continuous pulse ox, EKG, blood pressure and verbal communication was maintained with the patient. EBL: Minimal PROCEDURE INDICATION: Before the procedure were discussed with the patient detailed procedure, alternatives, complications including infection, bleeding, nerve damage, paralysis all of which could be permanent. Patient understands and all questions were answered. Note, patient has been newly diagnosed with nonsmall cell carcinoma of lung. He is scheduled to have PET scan in couple of weeks. As there is minimal change in CT scan of lumbar spine, not getting significant improvement with first DAQUAN, we would hold off doing any more spinal procedures until next PET scan and/ or MRI of lumbar spine to rule out any secondary involvement of the spine. PROCEDURE DESCRIPTION : After getting consent, patient in OR in prone position. Back was prepped with chlorhexidine and draped in sterile fashion. After injecting 10 mL of 1% lidocaine subcutaneously, a 20-gauge Tuohy needle was introduced at L5-S1 interspace with loss of resistance technique using a syringe filled with air. Negative CSF, negative blood, negative paresthesia. Needle position was confirmed with AP and lateral view of the fluoroscope. After repeat negative aspiration 6 mL solution was injected intermittently which consists of 5 mL of preservative-free normal saline mixed with 1 mL of 80 mg Depo-Medrol. Needle was withdrawn intact. Skin was cleansed and Band-Aids was applied. DISPOSITION / PLANS: The patient tolerated the procedure well. No complication. The patient was placed in a supine position and transferred to the recovery area in a stable condition for observation. There was no evidence of lower extremity motor or sensory deficit after the procedure. Patient was discharged from the recovery room after meeting discharge criteria. Home discharge instructions were given to the patient by the staff. The patient was reexamined prior to discharge. The patient will schedule a follow up in the clinic in 2-4 weeks.
[2024-12-11 07:42] VITALS: BP 135/80; PULSE 69
--- NOTE | 2024-12-11 08:38 | FL ---
EXAMINATION TYPE: FL guided pain mgmt statistic DATE OF EXAM: 12/11/2024 CLINICAL HISTORY: Low back pain. TECHNIQUE: Fluoroscopy. COMPARISON: None. FINDINGS: Fluoroscopic guidance was provided during pain relief procedure performed by Dr. Tobin . A total of 10.5 seconds of fluoroscopic time was utilized during the procedure and single spot int raoperative image is acquired. Single image acquired shows needle localization at posterior L5-S1 le franchesca. TOTAL DAP = [id number] mGy x m2. IMPRESSION: As Above. [facility], , 12/11/2024 8:36 AM
== END 2024-12-11 07:55 | disposition home or self-care (01) ==
LOC: ORPAIN 05:41
PROVIDERS: ATTEND Pain Medicine Interventional Pain Medicine
DX: M51.369 Other intervertebral disc degeneration, lumbar region without mention of lumbar back pain or lower extremity pain (principal); M47.816 Spondylosis without myelopathy or radiculopathy, lumbar region; M48.061 Spinal stenosis, lumbar region without neurogenic claudication
CPT/HCPCS: 62323; J1010